=== PATIENT | male | born 1955 | race Caucasian/White ===

== ENCOUNTER 2021-11-26 08:34 | Observation (INO) ==
[~2021-11-26 08:34] MED LIST: LIDOCAINE 1% LOCAL 20 ML VIAL ONE
[2021-11-26] MEDS ORDERED: MIDAZOLAM HCL 1 MG/ML 2ML VIAL ONE (09:22)
[2021-11-26] MEDS ORDERED: niCARdipine HCL INJ 2.5 MG/ML 10 ML AMP ONE (09:22)
[2021-11-26] MEDS ORDERED: HEPARIN (PORCINE) 1000 UNIT/ML 10 ML (CATH LAB USE ONLY) ONE ×2 (09:22→11:45)
[2021-11-26] MEDS ORDERED: fentaNYL citrate 100 MCG/2 ML VIAL ONE (09:22)
[2021-11-26] MEDS ORDERED: NITROGLYCERIN/D5W 100MCG/ML 20ML SYR ONE (09:23)
--- NOTE | 2021-11-26 09:54 | Pre Anesthesia Assessment ---
Date of Service November 26, 2021 Pre Sedation Assessment Vital Signs Temp Pulse Pulse Pulse Resp BP Pulse Ox 11/27/21 08:01 36.6 C 69 20 116/75 94 11/27/21 07:00 59 L 11/27/21 03:20 36.5 C 67 14 112/68 97 11/26/21 23:00 65 11/26/21 22:57 36.4 C L 61 18 131/67 95 11/26/21 18:59 37.3 C 64 18 131/67 95 11/26/21 15:10 36.4 C L 69 17 135/77 96 11/26/21 13:41 36.6 C 70 18 153/89 H 96 11/26/21 12:52 36.4 C L 60 18 149/77 H 98 11/26/21 12:20 36.3 C L 61 20 174/79 H 98 11/26/21 12:05 16 157/90 H 97 11/26/21 11:50 67 16 153/84 H 95 O2 Del Method 11/27/21 08:01 Room Air 11/27/21 07:00 11/27/21 03:20 Room Air 11/26/21 23:00 11/26/21 22:57 Room Air 11/26/21 18:59 Room Air 11/26/21 15:10 Room Air 11/26/21 13:41 Room Air 11/26/21 12:52 11/26/21 12:20 Room Air 11/26/21 12:05 Room Air 11/26/21 11:50 Room Air Cardiovascular RRR, no murmur, no edema + femoral pulses present and + radial pulses present; no JVD and no carotid bruit no edema Respiratory normal respiratory effort, lungs clear to auscultation Pre-Sedation Airway Assessment Smoking Status: Never smoker Hx Sleep Apnea: No Short, Thick Neck: No Thyromental Distance: > or= 3.5 Finger Breadths Oral Cavity: + WNL Mallampati Class: II ASA: ASA3 NPO Status Date of Last Intake of Fluids: 11/26/21 Time of Last Intake of Fluids: 06:00 Date of Last Intake of Solid Food: 11/25/21 Time of Last Intake of Solid Foods: 20:30 Procedure Planning Contraindications for Sedation: none Current Medications Reviewed: Yes Notes The planned sedation has been discussed with the patient. Informed Consent was obtained. I have identified the patient, determined the appropriateness of sedation and have assessed the patient immediately prior to the procedure. All medicine(s) and interventions are by my order.
--- NOTE | 2021-11-26 09:54 | History & Physical Bridge Note ---
Date of Service November 26, 2021 History & Physical Bridge Note I have examined the patient, reviewed the History & Physical and in the interval since the performance of the History & Physical I have noted the following changes of clinical significance: no changes noted
--- NOTE | 2021-11-26 11:12 | Post Anesthesia Assessment ---
Date of Service November 26, 2021 Post Sedation Assessment Vital Signs Temp Pulse Pulse Pulse Resp BP Pulse Ox 11/27/21 08:01 36.6 C 69 20 116/75 94 11/27/21 07:00 59 L 11/27/21 03:20 36.5 C 67 14 112/68 97 11/26/21 23:00 65 11/26/21 22:57 36.4 C L 61 18 131/67 95 11/26/21 18:59 37.3 C 64 18 131/67 95 11/26/21 15:10 36.4 C L 69 17 135/77 96 11/26/21 13:41 36.6 C 70 18 153/89 H 96 11/26/21 12:52 36.4 C L 60 18 149/77 H 98 11/26/21 12:20 36.3 C L 61 20 174/79 H 98 11/26/21 12:05 16 157/90 H 97 11/26/21 11:50 67 16 153/84 H 95 O2 Del Method 11/27/21 08:01 Room Air 11/27/21 07:00 11/27/21 03:20 Room Air 11/26/21 23:00 11/26/21 22:57 Room Air 11/26/21 18:59 Room Air 11/26/21 15:10 Room Air 11/26/21 13:41 Room Air 11/26/21 12:52 11/26/21 12:20 Room Air 11/26/21 12:05 Room Air 11/26/21 11:50 Room Air Recovery Score Activity: Moves 4 extremities Respiration: Deep Breath/Cough Circulation: +/-20% PreAnes Value Consciousness: Arouseable (by name) Oxygen Saturation: > 92% On Room Air Discharge Sedation Level of Care: Phase I Post Sedation Plan On clinical assessment, the patient appears to have tolerated the sedation without complications. Patient is recovering as anticipated. Patient will continue to be monitored by nursing and may be discharged when sedation discharge criteria are met per below protocol. Upon Completions of procedure up to 15 minutes continue every 5 minute vital signs and the P.A.R. score; then discharge to a Phase I or Fast Track to Phase II per the following guidelines: * Discharge Patient to appropriate Phase II area if PAR is 8 or greater or return to pre- procedure baseline. The post - procedure orders will be as directed. * If PAR score is less than 8 or not return to pre-procedure baseline then patient will follow Phase I monitoring till PAR is reached for Phase II. The Phase I may be done in procedure room or may call to secure a Phase I area. * If naloxone or flumazenil are used for reversal, hold in Phase I for continued monitoring from when last reversal dose was given for a minimum of 60 minutes or longer pending the nurse and/or physician discretion of patient condition before discharge to Phase II. Please call the Sedation Physician to re-evaluate and complete post-note for discharge to Phase II area. Do NOT discharge from procedure sedation or Phase 1 until post- sedation evaluation note is complete by procedure /sedation MD Sedation Discharge Instructions to be given to the patient at discharge to home.
--- NOTE | 2021-11-26 11:15 | Cardiac Catheterization ---
Cardiac Cath Procedure Full Procedure Date November 26, 2021 Pre-Procedure Diagnosis Pre-Procedure Diagnosis: Angina and Positive Stress Test AUC Score AUC Score: 8 Post-Procedure Diagnosis Post-Procedure Diagnosis: Severe CAD and Elevated Intracardiac Pressures Procedure(s) Performed Procedure(s) Performed: Coronary Angiography and Left Heart Cath Groover Runner Suman Locke DO Rib Stiffener And Heel Dipper(s) Santoshr ATOMIC SPECTROSCOPIST Estimated Blood Loss Estimated Blood Loss: 5cc Medication(s) Medication(s): Fentanyl, Heparin, Lidocaine 1%, Nicardipine, Nitroglycerin and Versed Summary of Findings Severe tandem mid LAD stenosis. Severe diagonal branch vessel disease 70% mid RCA Hemodynamics Rest Ao:: 113/59/75 Final Ao: 123/64/89 LV: 121/0/13 Recommendations Recommendations: PCI without planned CABG Specimens Specimens: None Radiation Exposure (mGy) 319 Contrast (mls) 45 Drains Drains: N/A Anesthesia Moderate Sedation. Start 1048. End 1101. Sedation monitor: Maulik ARREAGA Procedural Complication(s) None Disposition Patient remained in Reimbursement Consultant for PCI of the LAD. I attest to the content of the Intraoperative Record and any orders documented therein. Any exceptions are noted below. ACC Data: Reimbursement Consultant Cardiac Status Clinical evaluation leading to the procedure 66-year-old pain-patient with exertional chest discomfort. Exercise stress echo borderline positive for inducible ischemia. CAD Presenation: Positive Stress Test and Stable angina Anginal Classification: CCS II Coronary Anatomy Dominant: Right Left Main (% Stenosis): Normal LAD (% Stenosis): Proximal (30%) and Mid (Tandem 80% followed by 90%) D1 (% Stenosis): Ostial (70%) and Mid (90%) Circumflex (% Stenosis): Proximal (20%) OM1 (% Stenosis): Mid (20%) RCA (% Stenosis): Mid (focal 70%) R PDA (% Stenosis): Normal R PL1 (% Stenosis): Normal R PL2 (% Stenosis): Normal Diagnostic Physicians Name: Suman Locke DO Closure Device Percutaneous Entry Location: Radial Closure Device: Radial Band Recommendations: PCI without planned CABG Intraprocedure Events Significant Disection: No Perforation: No
[2021-11-26] MEDS ORDERED: hydrALAZINE HCL 20 MG/ML VIAL ONE (11:42)
[2021-11-26] MEDS ORDERED: ASPIRIN 81 MG CHEW ONE (11:49)
[2021-11-26] MEDS ORDERED: CLOPIDOGREL BISULFATE 300 MG TAB ONE (11:55)
--- NOTE | 2021-11-26 12:29 | Cardiac Catheterization ---
[facility] Data: Tour Operator Cardiac Status Clinical evaluation leading to the procedure CAD Presenation: Positive Stress Test and Stable angina Anginal Classification: CCS III Heart Failure: No Cardiogenic Shock within 24 Hours: No Cardiac Arrest within 24 Hours: No Diagnostic Physicians Name: Magdaleno Kelly MD, PhD Closure Device Percutaneous Entry Location: Radial Closure Device: Radial Band Recommendations: PCI without planned CABG PCI Indication: + Stress Test Lesion Segment Name: Mid LAD Culprit Artery: Yes Stenosis Prior to Rx (%): 80 Chronic Total Occlusion: No Pre-Procedure TRICIA Flow: 2 Previously Treated Lesion: No Lesion Complexity: Non-High/Non-C Lesion Length (mm): 18 mm Thrombus Present: No Bifurcation Lesion: Yes Guidewire Across Lesion: Yes Intraprocedure Events Significant Disection: No Perforation: No Cardiac Cath Procedure Full Procedure Date November 26, 2021 Pre-Procedure Diagnosis Pre-Procedure Diagnosis: Angina, Positive Stress Test and CAD AUC Score AUC Score: 8 Post-Procedure Diagnosis Post-Procedure Diagnosis: Severe CAD and Successful PCI Procedure(s) Performed Procedure(s) Performed: Drug Eluting Stent Occupational Health Physician Magdaleno Kelly MD, PhD Teacher Aide(s) Josh LIU Estimated Blood Loss Estimated Blood Loss: 5cc Medication(s) Medication(s): Fentanyl, Heparin, Lidocaine 1%, Nicardipine, Nitroglycerin and Versed Summary of Findings Brief description: Patient was already shaved and prepped, sedated, with a 6 Indonesian radial artery sheath in place from diagnostic catheterization (see Dr. Locke note). ACT was checked and additional IV heparin was provided as needed to maintain therapeutic ACT. 6 Indonesian EBU 3.5 guide catheter used to cannulate the left main. BMW versa guidewire advanced into the distal LAD. Predilatation using a 2.5 x 12 mm trek up to 14 mike, multiple inflations. Stent implantation with a 2.5 x 23 mm Xience drug-eluting stent deployed at 12 mike. Postdilatation of the proximal and mid portion of the stent using a 2.75 x 12 mm noncompliant balloon. BMW universal rdirected into diagonal. attempted delivery of 2.0x8 PTCA balloon to post dilate struts but unsuccessful delivery. Balloon and guidewire removed. final angiographic evaluation. Guidecatheter removed. Radial sheath removed. TR band for hemostasis. Patient remained hemodynamically stable and asymptomatic. Patient received 600 mg of p.o. Plavix and 250 mg of p.o. aspirin. Returned to recovery. Case end. Findings: PCI of LAD: 0% residual stenosis post PCI TRICIA-3 flow post PCI No evidence of dissection or perforation post PCI Ostium of the diagonal is jailed. However, TRICIA-3 flow is present. Hemodynamics Rest Ao:: 123/64 mmHg, mean 89 mmHg Final Ao: 157/71 mmHg, mean 91 mmHg LV: Not performed Recommendations Recommendations: PCI without planned CABG Specimens Specimens: None Radiation Exposure (mGy) 1064 mGy, fluoroscopy time 11.7 minutes Contrast (mls) 90 mL Drains Drains: N/A Anesthesia Moderate Sedation. Start 1048. End 1101. Sedation monitor: Maulik ARREAGA Procedural Complication(s) None Disposition Patient remained in Tour Operator for PCI of the LAD. I attest to the content of the Intraoperative Record and any orders documented therein. Any exceptions are noted below. [facility] Card Cath Procedure Codes Stenting Procedure 1: Cardiovascular Stent Procedures: [id number] [facility] transcatheter placement of intracoronary stent(s), with ang (LAD) PG Care Time/CCT Total # of Minutes Spent Total Time Spent with Patient: Total time spent is greater than 50% in coordination of care (as documented) at patient's floor/unit and/or counseling patient:
[2021-11-27] MEDS ORDERED: ASPIRIN 81 MG ECTAB PO SCH (09:00)
[2021-11-27] MEDS ORDERED: LEVOTHYROXINE SODIUM 88 MCG TABLET PO SCH (09:00)
[2021-11-27] MEDS ORDERED: CLOPIDOGREL BISULFATE 75 MG TAB PO SCH (09:00)
[2021-11-27] MEDS ORDERED: ASPIRIN 325 MG ECTAB PO SCH (09:00)
[2021-11-27] MEDS ORDERED: ATORVASTATIN 40 MG TAB PO SCH (09:00)
--- NOTE | 2021-11-27 09:29 | Cardiology Progress Note ---
Date of Service November 27, 2021 Assessment & Plan (1) Status post insertion of drug-eluting stent into left anterior descending (LAD) artery: (2) Abnormal stress echocardiogram: (3) Dyslipidemia, goal LDL below 70: (4) Sinus bradycardia: Plan I had a long conversation with the patient and his regarding the results of cardiac catheterization and percutaneous intervention. Right coronary artery and diagonal branch vessel disease currently managed medically. If patient ex periences recurrent anginal symptoms. We will consider RCA intervention. Indications for current cardiovascular medications including aspirin, clopidogrel, high intensity statin therapy, and sublingual nitroglycerin reviewed. Patient agreeable to continue current medications. I would not recommend addition of beta-tangela therapy due to borderline resting hypotension and sinus bradycardia. Cardiology follow-up in 2-4 weeks. Admission and Anticipated Discharge Date Admission Date: November 26, 2021 Subjective 66-year-old patient status post cardiac catheterization demonstrating LAD, diagonal branch vessel, RCA stenosis. Status post LAD stenting with 2.5 x 23 mm Xience drug-eluting stent. RCA and diagonal branch vessel managed medically. Feeling well this morning. Denies chest pain or shortness of breath overnight. Telemetry reveals sinus bradycardia heart rate ranging 50-65 bpm. present at bedside. Offers no additional concerns/complaints. Review of Systems Review of Systems: All systems reviewed & are unremarkable except as noted in Subjective Physical Exam Constitutional: well developed and well nourished; no acute distress Respiratory: normal respiratory effort; no respiratory distress, no labored breathing and no retractions Auscultation: lungs clear to auscultation bilaterally; no crackles, no rales, no rhonchi and no wheezes Cardiovascular: Rate/Rhythm: regular rate and regular rhythm Heart Sounds: normal S1 and normal S2; no murmur Vessels: radial pulses present; no JVD and no carotid bruit Extremities: no edema Gastrointestinal (Abdomen): Inspection/Auscultation: abdomen normal to inspection and normal bowel sounds; abdomen not distended Percussion/Palpation: abdomen soft; abdomen nontender Neurologic: CN's II-XI intact bilaterally and moves all extremities; no focal motor deficits Motor/Sensory: no tremor Psychiatric: A+Ox3, euthymic affect Results & Data ([facility]) Vital Signs (Past 12 Hours) Vital Signs Temp Pulse Pulse Pulse Resp BP Pulse Ox 11/27/21 08:01 36.6 C 69 20 116/75 94 11/27/21 07:00 59 L 11/27/21 03:20 36.5 C 67 14 112/68 97 11/26/21 23:00 65 11/26/21 22:57 36.4 C L 61 18 131/67 95 O2 Del Method 11/27/21 08:01 Room Air 11/27/21 07:00 11/27/21 03:20 Room Air 11/26/21 23:00 11/26/21 22:57 Room Air
[2021-11-27] MEDS ORDERED: NITROGLYCERIN SL 0.4 MG/TAB TAB SL PRN (09:54)
--- NOTE | 2021-11-27 10:09 | Discharge Summary ---
Date of Service November 27, 2021 Admission HPI Per Admitting Provider 66-year-old male presents for cardiac catheterization due to abnormal stress echo and exertional angina. Principal Diagnosis Coronary artery disease status post drug-eluting stent implantation to the left anterior descending artery. Residual right coronary artery and diagonal branch vessel disease managed medically. Discharge Exam Respiratory normal respiratory effort, lungs clear to auscultation Cardiovascular Rate/Rhythm: regular rate, regular rhythm and + bradycardic Heart Sounds: normal S1 and normal S2; no murmur Vessels: radial pulses present; no JVD and no carotid bruit Extremities: no edema Gastrointestinal (Abdomen) Inspection/Auscultation: abdomen normal to inspection and normal bowel sounds; abdomen not distended Neurologic CN's II-XI intact bilaterally and moves all extremities; no focal motor deficits Psychiatric A+Ox3, euthymic affect Discharge Data Allergies Allergy/AdvReac Type Severity Reaction Status Date / Time No Known Allergies Allergy Unverified 11/26/21 08:55 Procedures Performed Operation Date: 11/26/21 09:30 Actual Procedures s Cineradiography w/Routine Exam - Suman Locke DO p Cath, Left with Cors and Vent(Right) - Suman Locke DO s Drug Eluting Stent SGl Vessel - Magdaleno Kelly MD, PhD Ordered Studies 11/26/21 06:52 CL IVUS Coronary Single Vessel Routine 11/26/21 06:55 CL Cath Imgs for PACS use only Routine Hospital Course (1) Status post insertion of drug-eluting stent into left anterior descending (LAD) artery: (2) Abnormal stress echocardiogram: (3) Dyslipidemia, goal LDL below 70: (4) Sinus bradycardia: Plan 66-year male status post drug-eluting stent plantation to left anterior descending artery. Residual RCA and diagonal branch vessel disease managed medically. Discussed importance of continuing dual antiplatelet therapy uninterrupted for minimum of 6 months post percutaneous intervention. Titrate atorvastatin to 80 mg daily. Proper use of sublingual nitroglycerin reviewed. Cardiology follow-up will be scheduled in 2-4 weeks. Total Time Total Time Spent Total Time Spent (In Minutes): 35 Discharge Plan Discharge Items Patient Disposition: Home - Self-Care Reason For Visit: Abnormal Stress Echo, Chest Heaviness Discharge Diagnosis: CAD s/p LAD drug-eluting stent implantation. Residual diagonal branch vessel and right coronary artery disease managed medically. Condition on Discharge: Good Activity: Per Instructions section Non-emergency contact: Conditioner Tumbler Operator Call non-emergency contact if: you have any medication questions, your symptoms worsen, your wound has increased redness and your wound pain has increased Follow-up/Referrals: Ngoc Hairston DO [Primary Care Provider] - Diet: Heart Healthy Addtl Attending Provider Instructions: ACTIVITY RECOMMENDATIONS: It is common to feel weak and fatigue for a few days. * Do not drive or operate any motorized equipment for the next three days. * Limit stair usage (2 or 3 trips a day only) for the next three days. * Do not lift anything heavier than 10 pounds for the next three days. * Do not engage in vigorous exercise or any sports for the next five days. * You may shower the day after your procedure, but do not immerse the area for three days. Cleanse the site gently with soap and water. SPECIAL CARE INSTRUCTIONS: * You may replace the pressure dressing or band-aid the morning after the procedure. * After your procedure, it is normal to have a small bruise or small lump at the site. Examine your site daily for any change in the bruise or lump, redness, swelling, drainage or numbness. Notify your doctor if any change. BLEEDING: * If there is a small amount of bleeding at the site, lie down and apply firm pressure with a clean cloth for ten minutes. When the bleeding stops, lie quietly keeping the procedure limb straight for six hours. Notify your doctor as soon as possible. * If the bleeding does not stop after ten minutes or if there is a large amount of bleeding or spurting, call 911 immediately. Continue to lie down and hold firm pressure until help arrives. SKIN IRRITATION: * You may experience some redness and/or swelling in the area where radiation was administered. If any skin irritation occurs, please contact your family physician. FOLLOW UP VISIT: Keep any scheduled doctor appointments. Pending Studies at Discharge: No Stand-Alone Forms: My [email or web address], Work/School Release, Smoking Cessation Medications and DC Order Prescriptions: New clopidogrel 75 mg Tablet 75 mg PO QAM Qty: 30 6RF atorvastatin 40 mg Tablet 80 mg PO DAILY Qty: 30 6RF nitroglycerin [Nitrostat] 0.4 mg Tablet, Sublingual 0.4 mg sublingual PRN PRN (Reason: chest pain) Qty: 1 4RF Continued levothyroxine 88 mcg Tablet 88 mcg PO DAILY aspirin 81 mg Capsule 81 mg PO DAILY Discontinued atorvastatin [Lipitor] 40 mg Tablet 40 mg PO DAILY Discharge Orders: Discharge Order (Routine); Ordered 11/27/21 Ordered By: Suman Locke Admission Data Admit Date/Time: 11/26/21 11:29 Attending Provider: Suman Locke Admit Provider: Suman Locke Primary Care Provider: Ngoc Hairston
[2021-11-28] MEDS ORDERED: ATORVASTATIN 40 MG TAB PO SCH (09:00)
== END 2021-11-27 10:54 | disposition home or self-care (01) ==
LOC: CC 08:34 → 2S 08:34

== ENCOUNTER 2022-02-24 18:22 | Inpatient (IN) ==
[2022-02-24 18:54] LABS: Basophils # (auto) 0.04 K/uL (0-0.2); Basophils % (auto) 0.6 %; Eosinophils # (auto) 0.09 K/uL (0-0.50); Eosinophils % (auto) 1.3 %; Hematocrit (blood only) 43.6 % (40.1-51.0); Hemoglobin 15.2 g/dl (14.0-18.0); Immature Granulocytes # (auto) 0.01 K/uL (0.00-0.02); Immature Granulocytes % (auto) 0.1 %; Lymphocytes # (auto) 2.48 K/uL (1.2-3.4); Lymphocytes % (auto) 34.7 %; Mean Corpuscular Hemoglobin 31.2 pg (25.0-34.0); Mean Corpuscular Hgb Conc 34.9 g/dL (32.0-36.0); Mean Corpuscular Volume 89.5 fL (80.0-100.0); Mean Platelet Volume 10.3 fL (9.4-12.4); Monocytes # (auto) 0.67 K/uL (0.24-0.82); Monocytes % (auto) 9.4 %; Neutrophils # (auto) 3.86 K/uL (1.4-6.5); Neutrophils % (auto) 53.9 %; Platelet Count 141 K/uL (130-400); RDW Coefficient of Variation 13.1 % (11.5-14.5); RDW Standard Deviation 42.7 fL (36.4-46.3); Red Blood Count 4.87 M/uL (4.63-6.08); White Blood Count 7.15 K/ul (4.8-10.8)
[2022-02-24 19:11] LABS: INR 1.1 (0.9-1.1); Partial Thromboplastin Ratio 0.9; Partial Thromboplastin Time 24.9 Seconds (21.0-31.0); Prothrombin Time 11.4 Seconds (9.0-12.0)
[2022-02-24 19:20] LABS: Albumin Globulin Ratio 1.5 (0.9-2); Bilirubin,Total 0.6 mg/dl (0.2-1.0); Calcium 9.1 mg/dl (8.5-10.1); Creatinine Clr Calc Pharmacy 75.3 ml/min; Est GFR (African American) 89.2 ml/min; Globulin 2.7 gm/dl (2.5-4.0); Potassium 4.4 mmol/L (3.5-5.1); Total Protein 6.7 gm/dl (6.0-8.3)
[2022-02-24 19:25] LABS: Troponin I High Sensitivity 6.6 pg/ml (0-20)
--- NOTE | 2022-02-24 20:41 | XRay Report ---
XR chest 1V portable HISTORY: Chest pain, nonspecific COMPARISON: Chest 07/19/2021. FINDINGS: The lungs are clear. Cardiac silhouette is normal in size. No pleural effusions. No pneumot horax. IMPRESSION: No acute process. ACT 112: Negative or not required by law. Electronically signed by: Navarro Juarez M.D. 02/24/2022 8:39 PM
--- NOTE | 2022-02-24 21:42 | Emergency Department Note ---
Past Med/Surg History Social History Smoking Status: Never smoker Hx Alcohol Use: No Hx Substance Use: No Preferred Language: Cambodian Current Living Situation: Spouse Feels Safe at Home: Yes Assistive Devices: None Allergies Allergies Allergy/AdvReac Type Severity Reaction Status Date / Time No Known Allergies Allergy Unverified 11/26/21 08:55 Home Meds Home Medications Medication Instructions Recorded Confirmed aspirin 81 mg capsule 81 mg PO DAILY 11/26/21 11/26/21 levothyroxine 88 mcg tablet 88 mcg PO DAILY 11/26/21 11/26/21 Previous Rx's Medication Instructions Recorded atorvastatin 40 mg tablet 80 mg PO DAILY #30 tabs 11/27/21 clopidogrel 75 mg tablet 75 mg PO QAM #30 tabs 11/27/21 nitroglycerin 0.4 mg sublingual 0.4 mg sublingual PRN PRN chest 11/27/21 tablet (Nitrostat) pain #1 btl Results & Data (ED) Vital Signs Vital Signs - 24 hr 02/24/22 18:30 Temperature 36.9 C Temperature Source Temporal Artery Scan Pulse Rate 61 Respiratory Rate 19 Respiratory Effort / Characteristics Non-Labored Spontaneous Respiratory Depth Normal Blood Pressure 144/84 H Blood Pressure Mean 104 Pulse Oximetry 98 Oxygen Delivery Method Room Air Sepsis Recent Fever Within 48 Hours No Sepsis New/Unexplained Change in Mental Status N/A Sepsis Action Taken by Nursing No Action Required Laboratory Data 02/24/22 18:45 02/24/22 18:45 Lab Results 02/24/22 02/24/22 02/24/22 Range/Units 18:45 18:45 18:45 WBC 7.15 (4.8-10.8) K/ul RBC 4.87 (4.63-6.08) M/uL Hgb 15.2 (14.0-18.0) g/dl Hct 43.6 (40.1-51.0) % MCV 89.5 (80.0-100.0) fL MCH 31.2 (25.0-34.0) pg MCHC 34.9 (32.0-36.0) g/dL RDW Std Deviation 42.7 (36.4-46.3) fL RDW Coeff of Natan 13.1 (11.5-14.5) % Plt Count 141 (130-400) K/uL MPV 10.3 (9.4-12.4) fL Immature Gran % (Auto) 0.1 % Neut % (Auto) 53.9 % Lymph % (Auto) 34.7 % Cooper % (Auto) 9.4 % Eos % (Auto) 1.3 % Baso % (Auto) 0.6 % Neut # (Auto) 3.86 (1.4-6.5) K/uL Lymph # (Auto) 2.48 (1.2-3.4) K/uL Cooper # (Auto) 0.67 (0.24-0.82) K/uL Eos # (Auto) 0.09 (0-0.50) K/uL Baso # (Auto) 0.04 (0-0.2) K/uL Immature Gran # (Auto) 0.01 (0.00-0.02) K/uL PT 11.4 (9.0-12.0) Seconds INR 1.1 (0.9-1.1) APTT 24.9 (21.0-31.0) Seconds PTT Ratio 0.9 Sodium 140 (136-145) mmol/L Potassium 4.4 (3.5-5.1) mmol/L Chloride 107 (98-107) mmol/L Carbon Dioxide 31 (21-32) mmol/L Anion Gap 2 L (3-11) BUN 28 H (6-23) mg/dl Creatinine 1.00 (0.6-1.4) mg/dl Est Cr Clr Drug Dosing 75.3 ml/min Est GFR ( Amer) 89.2 ml/min Est GFR (Non-Af Amer) 77.0 ml/min BUN/Creatinine Ratio 28.0 H (10-20) Glucose 86 (70-99(Fasting)) mg/dl Calcium 9.1 (8.5-10.1) mg/dl Magnesium 2.0 (1.7-2.4) mg/dl Total Bilirubin 0.6 (0.2-1.0) mg/dl AST 25 (13-39) U/L ALT 35 (7-52) U/L Alkaline Phosphatase 77 (34-104) U/L Troponin I High Sens 6.6 (0-20) pg/ml Total Protein 6.7 (6.0-8.3) gm/dl Albumin 4.0 (3.4-5.0) gm/dl Globulin 2.7 (2.5-4.0) gm/dl Albumin/Globulin Ratio 1.5 (0.9-2) Imaging Data Radiologist's Impression: Chest X-Ray 02/24/22 18:32 XR chest 1V portable HISTORY: Chest pain, nonspecific COMPARISON: Chest 07/19/2021. FINDINGS: The lungs are clear. Cardiac silhouette is normal in size. No pleural effusions. No pneumothorax. IMPRESSION: No acute process. ACT 112: Negative or not required by law. Electronically signed by: Navarro Juarez M.D. 02/24/2022 8:39 PM Discharge Plan Visit Data Chief Complaint: Cardiac Assessment Stated Complaint: REF BY DOC,HEART, CHEST PAIN,WEAK IN LEGS ED Provider: Neel Beckman ED Midlevel Provider: Shadia Moore Forms Stand Alone Forms: My [facility] Prescriptions Prescriptions: No Action levothyroxine 88 mcg Tablet 88 mcg PO DAILY aspirin 81 mg Capsule 81 mg PO DAILY clopidogrel 75 mg Tablet 75 mg PO QAM Qty: 30 6RF atorvastatin 40 mg Tablet 80 mg PO DAILY Qty: 30 6RF nitroglycerin [Nitrostat] 0.4 mg Tablet, Sublingual 0.4 mg sublingual PRN PRN (Reason: chest pain) Qty: 1 4RF Referrals Referrals: Ngoc Hairston DO [Primary Care Provider] -
[2022-02-24] MEDS ORDERED: ASPIRIN CHEW 324 MG PO STA (22:55)
--- NOTE | 2022-02-24 22:55 | Emergency Department Note ---
History of Present Illness General Chief complaint: Cardiac Assessment Stated complaint: REF BY DOC,HEART, CHEST PAIN,WEAK IN LEGS Time Seen by Provider: 02/24/22 21:28 History of Present Illness Maximum Pain Intensity: 2 This 66-year-old gentleman with prior heart disease and follows with Dr. Locke complains of exertional angina that is relieved with nitroglycerin for the past day. Patient states when he rests he feels much better. Patient denies fever, chills, abdominal pain, leg pain or swelling. He was stent placed last December. Home Medications Medication Instructions Recorded Confirmed Type aspirin 81 mg capsule 81 mg PO DAILY 11/26/21 02/24/22 History levothyroxine 88 mcg tablet 88 mcg PO DAILY 11/26/21 02/24/22 History clopidogrel 75 mg tablet 75 mg PO QAM #30 tabs 11/27/21 02/24/22 Rx nitroglycerin 0.4 mg sublingual 0.4 mg sublingual PRN PRN chest 11/27/21 02/24/22 Rx tablet (Nitrostat) pain #1 btl atorvastatin 80 mg tablet 80 mg PO QAM 02/24/22 02/24/22 History Allergies Allergy/AdvReac Type Severity Reaction Status Date / Time No Known Allergies Allergy Unverified 02/24/22 22:24 Past Med/Surg History Social History Smoking Status: Never smoker Hx Alcohol Use: No Hx Substance Use: No Preferred Language: Lao Current Living Situation: Spouse Feels Safe at Home: Yes Assistive Devices: None Review of Systems A total of 10 systems reviewed and were otherwise negative Physical Exam Vital Signs Vital Signs - 24 hr 02/24/22 18:30 Temperature 36.9 C Temperature Source Temporal Artery Scan Pulse Rate 61 Respiratory Rate 19 Respiratory Effort / Characteristics Non-Labored Spontaneous Respiratory Depth Normal Blood Pressure 144/84 H Blood Pressure Mean 104 Pulse Oximetry 98 Oxygen Delivery Method Room Air Sepsis Recent Fever Within 48 Hours No Sepsis New/Unexplained Change in Mental Status N/A Sepsis Action Taken by Nursing No Action Required VITALS: Vitals are noted on the nurse's note and reviewed by myself. Vital signs stable. GENERAL: Pleasant gentleman with his , in no acute distress, nondiaphoretic, well-developed well-nourished. SKIN: The skin was without rashes, erythema, edema, or bruising. There is no tenting of the skin. Capillary reflex less than 2 seconds. HEAD: Normocephalic atraumatic. EARS: External auditory canals clear EYES: Pupils equal round and reactive to light and accommodation. Conjunctivae without injection, sclerae without icterus. Extraocular movements intact. NOSE: Patent, turbinates without inflammation or discharge. MOUTH: Mucous membranes moist. Pharynx without erythema or exudate. Uvula midline. Airway patent. Tongue does not deviate. NECK: Supple without nuchal rigidity. No lymphadenopathy. No thyromegaly. Cervical spine is nontender. No JVD. HEART: Regular rate and rhythm LUNGS: Clear to auscultation bilaterally without wheezes, rales or rhonchi. No retractions or accessory muscle use. ABDOMEN: Positive bowel sounds x 4. Normal tympanic percussion. Soft, nontender, without masses or organomegaly. Victoria sign negative. No guarding or rebound tenderness. No CVA tenderness MUSCULOSKELETAL: No muscle atrophy, erythema, or edema noted. NEURO: Patient was alert and oriented to person place and time. Normal sensation to light and sharp touch. No focal neurological deficits. Medical Decision Making Medical Records Attestation: I reviewed the patient's medical records. Home Medications Current Medication List: was personally reviewed by me Laboratory Data Attestation: I reviewed the patient's lab results. 02/24/22 18:45 02/24/22 18:45 Lab Results 02/24/22 02/24/22 02/24/22 Range/Units 18:45 18:45 18:45 WBC 7.15 (4.8-10.8) K/ul RBC 4.87 (4.63-6.08) M/uL Hgb 15.2 (14.0-18.0) g/dl Hct 43.6 (40.1-51.0) % MCV 89.5 (80.0-100.0) fL MCH 31.2 (25.0-34.0) pg MCHC 34.9 (32.0-36.0) g/dL RDW Std Deviation 42.7 (36.4-46.3) fL RDW Coeff of Natan 13.1 (11.5-14.5) % Plt Count 141 (130-400) K/uL MPV 10.3 (9.4-12.4) fL Immature Gran % (Auto) 0.1 % Neut % (Auto) 53.9 % Lymph % (Auto) 34.7 % [place] % (Auto) 9.4 % Eos % (Auto) 1.3 % Baso % (Auto) 0.6 % Neut # (Auto) 3.86 (1.4-6.5) K/uL Lymph # (Auto) 2.48 (1.2-3.4) K/uL [place] # (Auto) 0.67 (0.24-0.82) K/uL Eos # (Auto) 0.09 (0-0.50) K/uL Baso # (Auto) 0.04 (0-0.2) K/uL Immature Gran # (Auto) 0.01 (0.00-0.02) K/uL PT 11.4 (9.0-12.0) Seconds INR 1.1 (0.9-1.1) APTT 24.9 (21.0-31.0) Seconds PTT Ratio 0.9 Sodium 140 (136-145) mmol/L Potassium 4.4 (3.5-5.1) mmol/L Chloride 107 (98-107) mmol/L Carbon Dioxide 31 (21-32) mmol/L Anion Gap 2 L (3-11) BUN 28 H (6-23) mg/dl Creatinine 1.00 (0.6-1.4) mg/dl Est Cr Clr Drug Dosing 75.3 ml/min Est GFR ( Amer) 89.2 ml/min Est GFR (Non-Af Amer) 77.0 ml/min BUN/Creatinine Ratio 28.0 H (10-20) Glucose 86 (70-99(Fasting)) mg/dl Calcium 9.1 (8.5-10.1) mg/dl Magnesium 2.0 (1.7-2.4) mg/dl Total Bilirubin 0.6 (0.2-1.0) mg/dl AST 25 (13-39) U/L ALT 35 (7-52) U/L Alkaline Phosphatase 77 (34-104) U/L Troponin I High Sens 6.6 (0-20) pg/ml Total Protein 6.7 (6.0-8.3) gm/dl Albumin 4.0 (3.4-5.0) gm/dl Globulin 2.7 (2.5-4.0) gm/dl Albumin/Globulin Ratio 1.5 (0.9-2) SARS-CoV-2, RNA, NAAT (NEGATIVE) 02/24/22 Range/Units 21:53 WBC (4.8-10.8) K/ul RBC (4.63-6.08) M/uL Hgb (14.0-18.0) g/dl Hct (40.1-51.0) % MCV (80.0-100.0) fL MCH (25.0-34.0) pg MCHC (32.0-36.0) g/dL RDW Std Deviation (36.4-46.3) fL RDW Coeff of Natan (11.5-14.5) % Plt Count (130-400) K/uL MPV (9.4-12.4) fL Immature Gran % (Auto) % Neut % (Auto) % Lymph % (Auto) % [place] % (Auto) % Eos % (Auto) % Baso % (Auto) % Neut # (Auto) (1.4-6.5) K/uL Lymph # (Auto) (1.2-3.4) K/uL [place] # (Auto) (0.24-0.82) K/uL Eos # (Auto) (0-0.50) K/uL Baso # (Auto) (0-0.2) K/uL Immature Gran # (Auto) (0.00-0.02) K/uL PT (9.0-12.0) Seconds INR (0.9-1.1) APTT (21.0-31.0) Seconds PTT Ratio Sodium (136-145) mmol/L Potassium (3.5-5.1) mmol/L Chloride (98-107) mmol/L Carbon Dioxide (21-32) mmol/L Anion Gap (3-11) BUN (6-23) mg/dl Creatinine (0.6-1.4) mg/dl Est Cr Clr Drug Dosing ml/min Est GFR ( Amer) ml/min Est GFR (Non-Af Amer) ml/min BUN/Creatinine Ratio (10-20) Glucose (70-99(Fasting)) mg/dl Calcium (8.5-10.1) mg/dl Magnesium (1.7-2.4) mg/dl Total Bilirubin (0.2-1.0) mg/dl AST (13-39) U/L ALT (7-52) U/L Alkaline Phosphatase (34-104) U/L Troponin I High Sens (0-20) pg/ml Total Protein (6.0-8.3) gm/dl Albumin (3.4-5.0) gm/dl Globulin (2.5-4.0) gm/dl Albumin/Globulin Ratio (0.9-2) SARS-CoV-2, RNA, NAAT NEGATIVE (NEGATIVE) Imaging Data Attestation: I personally reviewed and interpreted this imaging study as follows: Radiologist's Impression: Chest X-Ray 02/24/22 18:32 XR chest 1V portable HISTORY: Chest pain, nonspecific COMPARISON: Chest 07/19/2021. FINDINGS: The lungs are clear. Cardiac silhouette is normal in size. No pleural effusions. No pneumothorax. IMPRESSION: No acute process. ACT 112: Negative or not required by law. Electronically signed by: Navarro Juarez M.D. 02/24/2022 8:39 PM MDM Narrative Prior records/ancillary studies reviewed. Triage Nursing notes reviewed. Additional history obtained from family. The patient's history was concerning for chest pain. Differential diagnosis: Etiologies such as cardiac ischemia, aortic dissection, pulmonary embolism, pneumonia, pneumothorax, musculoskeletal, infections, pericarditis, myocarditis, esophageal rupture, gastrointestinal, as well as others were entertained. Physical examination: As above. ER treatment provided: An order was placed for continuous cardiac monitoring. The monitor shows a rate of 60-100 with a sinus rhythm per my interpretation. Aspirin On reassessment the patient felt better. Diagnostic interpretation by me: The electrocardiogram was negative for pathologic change. Order for chest pain EKG: Normal sinus, normal nose, no acute ST-T wave changes. Impression sinus bradycardia of 53 interpreted by myself I think arrhythmia is unlikely. EKG shows normal sinus rhythm with no interval abnormalities such as QT prolongation or WPW. There are no findings to suggest Brugada syndrome. Cardiac monitoring in the emergency department reveals no tachycardic or bradycardic dysrhythmia. Hypertrophic cardiomyopathy was considered but there are no clear historical elements pointing toward this. EKG is not suggestive. The QRS voltage is not extremely large and there are no sugg estive Q waves. The labs revealed negative troponin and repeat was ordered No worrisome leukocytosis, stable H&H Imaging studies: Chest x-ray with no acute consolidation, pneumothorax or free air per my interpretation HEART SCORE: Hx: high/mod/low suspicion: 1 ECG: ST depression/nonspecific changes/normal: 0 Age: Greater than 65/45-64/less than 45: 2 Risk factors: (Hypertension, hyperlipidemia, diabetes, coronary disease, tobacco use, cocaine use): 2 Troponin: Greater than 2 times normal limits/1-2 times normal limits/normal: 0 Total: 5 Consultation: A consultation was placed with the hospitalist. The case was discussed and diagnostics were reviewed. The patient was evaluated in the ER for further treatment. Exam and history seem consistent with exertional angina. Patient is considered moderate risk for heart disease. Labs and x-rays were ordered. First troponin was negative. Repeat was ordered. Case was discussed with the admission team and patient will be admitted to their service. Patient is agreeable to treatment plan of admission. By the evaluation outlined above emergent etiologies such as aortic dissection, pulmonary embolism, pneumonia, pneumothorax, infections, pericarditis, myocarditis, gastrointestinal, as well as others were deemed relatively unlikely. The pt informed about the findings as listed above. All questions were answered and pleased with the treatment. The chart was completed utilizing [employer] Speech voice recognition software. Grammatical errors, random word insertions, pronoun errors, and incomplete sentences are an occassional consequence of this system due to software limitations, ambient noise, and hardware issues. Any formal questions or concerns about the content, text, or information contained within the body of this dictation should be directly addressed to the physician video production assistant for clarification. Impression & Plan Chest pain Discharge Plan Visit Data Chief Complaint: Cardiac Assessment Stated Complaint: REF BY DOC,HEART, CHEST PAIN,WEAK IN LEGS ED Provider: Neel Beckman ED Midlevel Provider: Shadia Moore Discharge Problem: Chest pain Patient Disposition: Admitted As Inpatient Condition: Good Forms Stand Alone Forms: [facility] [employer] Prescriptions Prescriptions: No Action levothyroxine 88 mcg Tablet 88 mcg PO DAILY aspirin 81 mg Capsule 81 mg PO DAILY clopidogrel 75 mg Tablet 75 mg PO QAM Qty: 30 6RF nitroglycerin [Nitrostat] 0.4 mg Tablet, Sublingual 0.4 mg sublingual PRN PRN (Reason: chest pain) Qty: 1 4RF atorvastatin 80 mg tablet 80 mg PO QAM Referrals Referrals: Ngoc Hairston DO [Primary Care Provider] - : Chest pain Qualifiers: Chest pain type: unspecified Qualified Code(s): R07.9 - Chest pain, unspecified
--- NOTE | 2022-02-24 23:30 | Emergency Department Note ---
ED Visit Note I was consulted by the Advanced Practice Provider Ana oRsa Moore PA-C. I saw the patient personally and performed a substantive portion of the visit. This includes aspects of the HPI, MDM, diagnostic interpretations, and disposition/plan. Patient has a known history of A. fib and recent stent placement in December follows with Dr. Vivas. The patient was having exertional chest pain. Patient was admitted to the medicine service. . : Chest pain Qualifiers: Chest pain type: unspecified Qualified Code(s): R07.9 - Chest pain, unspecified
[2022-02-25] MEDS ORDERED: NITROGLYCERIN SL 0.4 MG/TAB TAB SL PRN (00:24)
[2022-02-25] MEDS ORDERED: POLYETHYLENE (MIRALAX) 17 GM PACK PO PRN (00:24)
[2022-02-25] MEDS ORDERED: ACETAMINOPHEN 325 MG TAB PO PRN (00:24)
[2022-02-25] MEDS: LEVOTHYROXINE SODIUM 88 MCG TABLET PO SCH (05:16)
--- NOTE | 2022-02-25 06:25 | History and Physical Report ---
DATE OF ADMISSION: 02/24/2022. CHIEF COMPLAINT: Chest pain. HISTORY OF PRESENT ILLNESS: A 66-year-old male with past medical history significant for hypothyroidism, hyperlipidemia, osteoarthritis, history of abnormal stress test, and status post cardiac catheterization and drug-eluting stent to the left anterior descending artery in November of 2021 and at that time he also was found to have 70% residual mid RCA disease and severe branch vessel diagonal stenosis, medically managed. The patient says he was doing okay until the last couple of days when he is getting chest pains on exertion. Walking 500 to 600 feet, he is feeling chest pain. He took two nitroglycerin yesterday and one nitroglycerin today which relieved the pain. When he rests, the pain resolves. Currently, resting comfortably in the bed in the ER, and has no pain. He is hemodynamically stable. Denies any other complaints. Denies any headache. No blurred visions, no earache, no runny nose, no sore throat, no cough. Appetite is okay. No difficulty swallowing. No shortness of breath. No nausea, no abdominal pain. Normal bowel and bladder movements. No swelling in the legs. ALLERGIES: No known drug allergies. PAST MEDICAL HISTORY: As mentioned above. PAST SURGICAL HISTORY: Cardiac catheterization with stent placement, right knee arthroscopy. MEDICATIONS: The patient is on aspirin 81 mg p.o. daily, atorvastatin 80 mg p.o. a.m., Plavix 75 mg p.o. a.m., levothyroxine 88 mcg p.o. daily, Nitrostat 0.4 mg sublingual p.r.n. FAMILY HISTORY: Significant for father had skin cancer; brother has diabetes; maternal grandmother has diabetes; paternal grandmother has diabetes; sister has diabetes; mother has Alzheimer disease. SOCIAL HISTORY: No smoking, no alcohol, no drug use. REVIEW OF SYSTEMS: As per HPI. Rest of the review of systems is negative. PHYSICAL EXAMINATION: GENERAL: The patient is of moderate build, not in acute distress. VITAL SIGNS: Temperature 36.9, pulse 61, respiratory rate 19, blood pressure 144/84, oxygen 98% on room air. HEENT: Pupils equal, round and reactive to light. Oral mucosa moist. NECK: No JVD. No neck masses. CARDIOVASCULAR: S1 and S2 heard. Regular rate and rhythm. No murmur, no gallop. RESPIRATORY SYSTEM: Normal AP diameter. No accessory muscle use. No wheezing, no crackles. ABDOMEN: Soft, bowel sounds present, nontender, no distention. CENTRAL NERVOUS SYSTEM: Cranial nerves II-XII grossly intact, nonfocal. EXTREMITIES: No edema, no erythema. LABORATORY DATA: WBC 7.15, hemoglobin 15.2, hematocrit 43.6, platelets 141. PT 11.4, INR 1.1, APTT 24.9. Sodium 140, potassium 4.4, chloride 107, bicarbonate 31, BUN 28, creatinine 1, serum glucose 86, calcium 9.1, magnesium 2, total bilirubin 0.6, AST 25, ALT 35, alkaline phosphatase 77. Troponin I high sensitivity 6.6. SARS-CoV-2 rapid test negative. IMAGING DATA: Chest x-ray, no acute process. EKG: Sinus bradycardia at a rate of 53, no significant change was found. ASSESSMENT AND PLAN: This is a 66-year-old male who presents with chest pain. 1. Chest pain, angina: The patient has history of coronary artery disease, status post LAD stent in November 2021. At that time, he was also found to have 70% mid RCA disease, medically managed. Currently, getting chest pain with exertion since last 2 days, relieved by nitroglycerin and relieved by rest. Currently hemodynamically stable. EKG is okay. Troponin is negative. Will follow serial cardiac enzymes. Will admit to tele floor. Will keep n.p.o. after midnight. Will get an echocardiogram. Consult cardiology in the a.m. 2. History of coronary artery disease, status post stent to LAD: On aspirin, Plavix, statin. Not on beta tangela due to bradycardia. 3. History of hyperlipidemia: On statin. Will follow lipid profile. 4. History of hypothyroidism: On levothyroxine. 5. Deep venous thrombosis prophylaxis: Sequential compression devices for now. DISPOSITION: Admit to tele. Expect to discharge home and follow with family doctor. Level 1 full code. Job ID: [id number] [facility]
[2022-02-25 06:28] LABS: Basophils # (auto) 0.02 K/uL (0-0.2); Basophils % (auto) 0.3 %; Eosinophils # (auto) 0.12 K/uL (0-0.50); Eosinophils % (auto) 2.1 %; Hematocrit (blood only) 42.3 % (40.1-51.0); Hemoglobin 14.8 g/dl (14.0-18.0); Immature Granulocytes # (auto) 0.01 K/uL (0.00-0.02); Immature Granulocytes % (auto) 0.2 %; Lymphocytes # (auto) 1.83 K/uL (1.2-3.4); Lymphocytes % (auto) 31.8 %; Mean Corpuscular Hemoglobin 30.6 pg (25.0-34.0); Mean Corpuscular Volume 87.6 fL (80.0-100.0); Mean Platelet Volume 10.3 fL (9.4-12.4); Monocytes # (auto) 0.55 K/uL (0.24-0.82); Monocytes % (auto) 9.6 %; Neutrophils # (auto) 3.22 K/uL (1.4-6.5); Platelet Count 137 K/uL (130-400); RDW Coefficient of Variation 12.7 % (11.5-14.5); RDW Standard Deviation 41.1 fL (36.4-46.3); Red Blood Count 4.83 M/uL (4.63-6.08); White Blood Count 5.75 K/ul (4.8-10.8)
[2022-02-25 06:40] LABS: Troponin I High Sensitivity 5.2 pg/ml (0-20)
[2022-02-25 06:49] LABS: Calcium 8.2 mg/dl (8.5-10.1); Magnesium 1.9 mg/dl (1.7-2.4); Potassium 3.8 mmol/L (3.5-5.1)
[2022-02-25 06:55] LABS: BUN Creatinine Ratio 26.8 (10-20); Chol HDL Ratio 2.3 (0-5); Creatinine Clr Calc Pharmacy 89.9 ml/min; Est GFR (African American) 105.3 ml/min; Est GFR (Non-African American) 90.9 ml/min
[2022-02-25] MEDS: ASPIRIN 81 MG ECTAB PO SCH (08:57)
[2022-02-25] MEDS: CLOPIDOGREL BISULFATE 75 MG TAB PO SCH (08:57)
[2022-02-25] MEDS: ATORVASTATIN 40 MG TAB PO SCH (08:57)
--- NOTE | 2022-02-25 10:13 | Cardiology Consultation ---
Date of Consultation February 25, 2022 Assessment & Plan (1) Chest pain: (2) Sinus bradycardia: (3) Dyslipidemia, goal LDL below 70: (4) Status post insertion of drug-eluting stent into left anterior descending (LAD) artery: Plan Given his significant symptoms consistent with unstable angina along with the known 70% mid RCA stenosis I believe most prudent course of action this point will be to proceed directly with cardiac catheterization and likely FFR the lesion. This was discussed with the patient and his in great detail and they both agree with the plan after discussing the risks, benefits and alternatives I have asked Dr. Zaldivar to perform the catheterization and he has kindly agreed. Further recommendations to follow. History of Present Illness Reason for Consultation: Chest pain Requesting Physician: Sarahi hospitalist group Attending Physician: Bert Leos MD History of Present Illness It was my pleasure to see Mr. Correa in cardiac consultation today February 25, 2022. He is a very pleasant 66-year-old gentleman has been followed Dr. Valencia of our cardiology practice for history of coronary artery disease. He underwent cardiac catheterization in November 2021 where a severely stenotic LAD was intervened upon and the first diagonal was jailed but maintained TRICAI-3 flow. He also had a 70% RCA lesion at that time there was not intervened upon. Prior to the catheterization he states his only symptoms were that of a syncopal event. He presented to [facility] on 02/24/2022 with complaints of chest pain. He states that he for started developing chest pain a day or 2 prior to arrival. 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 Then throughout the rest of the day anytime he would exert himself the pressure will become more intense until in the evening where he described the discomfort as 10 out of 10. At this time he took 2 sublingual nitroglycerin tablets with resolution of the discomfort. Upon arrival to the emergency department there is no acute ischemic changes and he was admitted to telemetry. Of note, he states he has not missed any doses of his dual antiplatelet therapy since stent placement. Allergies Allergy/AdvReac Type Severity Reaction Status Date / Time No Known Allergies Allergy Unverified 02/24/22 22:24 Home Medications Medication Instructions Recorded Confirmed Type aspirin 81 mg capsule 81 mg PO DAILY 11/26/21 02/24/22 History levothyroxine 88 mcg tablet 88 mcg PO DAILY 11/26/21 02/24/22 History clopidogrel 75 mg tablet 75 mg PO QAM #30 tabs 11/27/21 02/24/22 Rx nitroglycerin 0.4 mg sublingual 0.4 mg sublingual PRN PRN chest 11/27/21 02/24/22 Rx tablet (Nitrostat) pain #1 btl atorvastatin 80 mg tablet 80 mg PO QAM 02/24/22 02/24/22 History Patient History Social History Smoking Status: Never smoker Hx Alcohol Use: No Hx Substance Use: No Preferred Language: Paraguayan Communication Ability: Effective Stencil Inspector Required: No Beliefs That Will Affect Care: None Current Living Situation: Spouse Other Information That Helps Us Care for You: No Feels Safe at Home: Yes Safety Concerns: Feels Safe At This Time Assistive Devices: None Review of Systems Review of Systems: All systems reviewed & are unremarkable except as noted in HPI & below Physical Exam Physical Exam: General: Awake, alert and oriented x 3. No acute distress. HEENT: Normocephalic, atraumatic. Pupils equal, round and reactive to light and accommodation. Extraocular muscles are intact. Anicteric sclera. Moist mucous membranes. Neck: No JVD. No bruit. Cardiovascular: Regular. Positive S-4. Normal S-1 and S-2. No S-3. No murmurs or rubs. Pulmonary: Clear to auscultation B/L. No rales, rhonchi or wheezing Abdomen: Bowel sounds x 4, soft. No rebound, guarding or tenderness. No organomegaly. Extremities: No clubbing, cyanosis or edema. +2 pedal pulses bilaterally. Skin: Warm and dry. Results & Data ([facility]) Vital Signs (Past 12 Hours) Vital Signs Temp Pulse Pulse Resp BP Pulse Ox O2 Del Method 02/25/22 07:40 36.6 C 54 L 19 124/78 98 Room Air 02/25/22 03:13 36.6 C 56 L 18 133/79 97 Room Air 02/25/22 00:15 Room Air 02/25/22 00:15 Room Air 02/25/22 00:15 36.5 C 58 L 18 150/89 H 100 Room Air 02/24/22 23:20 54 L 14 96 02/24/22 23:10 57 L 16 95 02/24/22 23:00 53 L 16 95 02/24/22 22:56 53 L 15 95 Diagnostic Findings Cardiac cath 11/26/21 Findings: PCI of LAD: 0% residual stenosis post PCI TRICIA-3 flow post PCI No evidence of dissection or perforation post PCI Ostium of the diagonal is jailed. However, TRICIA-3 flow is present. (1) Chest pain Chest pain type: unspecified Qualified Code(s): R07.9 - Chest pain, unspecified
[2022-02-25] MEDS: ISOSORBIDE MONO EXTENDED REL 30 MG TABCR PO SCH (11:23)
[2022-02-25] MEDS ORDERED: fentaNYL citrate 100 MCG/2 ML VIAL ONE ×2 (11:39→13:43)
[2022-02-25] MEDS ORDERED: HEPARIN (PORCINE) 1000 UNIT/ML 10 ML (CATH LAB USE ONLY) ONE ×2 (11:39→13:38)
[2022-02-25] MEDS ORDERED: niCARdipine HCL INJ 2.5 MG/ML 10 ML AMP ONE (11:39)
[2022-02-25] MEDS ORDERED: MIDAZOLAM HCL 1 MG/ML 2ML VIAL ONE (11:39)
[2022-02-25] MEDS ORDERED: NITROGLYCERIN/D5W 100MCG/ML 20ML SYR ONE (11:40)
--- NOTE | 2022-02-25 11:42 | Pre Anesthesia Assessment ---
Date of Service February 25, 2022 Pre Sedation Assessment Vital Signs Temp Pulse Pulse Resp BP BP Pulse Ox 02/25/22 11:33 56 L 16 141/79 H 99 02/25/22 11:20 97.5 F L 53 L 19 164/83 H 98 02/25/22 07:40 97.9 F 54 L 19 124/78 98 02/25/22 03:13 97.9 F 56 L 18 133/79 97 02/25/22 00:15 02/25/22 00:15 02/25/22 00:15 97.7 F 58 L 18 150/89 H 100 02/24/22 23:20 54 L 14 96 02/24/22 23:10 57 L 16 95 02/24/22 23:00 53 L 16 95 02/24/22 22:56 53 L 15 95 02/24/22 18:30 98.4 F 61 19 144/84 H 98 O2 Del Method 02/25/22 11:33 Room Air 02/25/22 11:20 Room Air 02/25/22 07:40 Room Air 02/25/22 03:13 Room Air 02/25/22 00:15 Room Air 02/25/22 00:15 Room Air 02/25/22 00:15 Room Air 02/24/22 23:20 02/24/22 23:10 02/24/22 23:00 02/24/22 22:56 02/24/22 18:30 Room Air Cardiovascular RRR, no murmur, no edema Respiratory normal respiratory effort, lungs clear to auscultation Pre-Sedation Airway Assessment Smoking Status: Never smoker Hx Sleep Apnea: No Hx Difficult Intubation: No Short, Thick Neck: No Thyromental Distance: > or= 3.5 Finger Breadths Oral Cavity: + WNL Mallampati Class: III ASA: ASA2 NPO Status Date of Last Intake of Fluids: 02/25/22 Time of Last Intake of Fluids: 10:00 Date of Last Intake of Solid Food: 02/24/22 Time of Last Intake of Solid Foods: 23:00 Procedure Planning Contraindications for Sedation: none Current Medications Reviewed: Yes Notes The planned sedation has been discussed with the patient. Informed Consent was obtained. I have identified the patient, determined the appropriateness of sedation and have assessed the patient immediately prior to the procedure. All medicine(s) and interventions are by my order.
[2022-02-25] MEDS ORDERED: NOREPINEPHRINE BITARTRATE 1 MG/ML 4 ML VIAL IV ONE ×2 (12:50→12:52)
--- NOTE | 2022-02-25 13:01 | Hospitalist Progress Note ---
Date of Service February 25, 2022 Assessment & Plan (1) Chest pain: Plan: Patient is a 66 yr male who presents with chest pain. Chest pain Unstable angina H/O CAD S/P LAD stent in November 2021, 70% mid RCA stenosis -Troponin Negative -ECHO: Normal LV chamber size and wall thickness, normal LV systolic function, EF 60 to 65%. No segmental left ventricle wall motion abnormalities noted. Grade 2 diastolic dysfunction. Trace aortic and tricuspid regurgitation. -CXR:The lungs are clear. Cardiac silhouette is normal in size. No pleural effusions. No pneumothorax. -Continue aspirin, Lipitor, Plavix, isosorbide Nitroglycerin as needed Appreciate cardiology input Plan for cardiac catheterization today Chronic sinus bradycardia Not on any AV marshall blocking agents Monitor Hyperlipidemia: Lipid panel normal Continue Lipitor Hypothyroidism: On levothyroxine Check TSH DVT Px: SCDs for now Admission and Anticipated Discharge Date Admission Date: February 24, 2022 Subjective Patient is seen and examined at bedside Denies any chest pain today Also denies any dyspnea, dizziness, nausea, abdominal pain Family at bedside Plan for cardiac catheterization today Review of Systems Review of Systems: All systems reviewed & are unremarkable except as noted in Subjective Physical Exam Physical Exam: Physical Exam: Vitals signs as noted above General Appearance:Moderately built and nourished, no apparent distress Head: normocephalic, Atraumatic Eyes: normal inspection, EOMI Neck: supple, Trachea midline Respiratory/Chest: Normal breath sounds, CTA, No accessory muscle use Cardiovascular: S1, S2, No murmur Abdomen/GI:Soft, Non tender, Bowel sounds present Extremities/Musculoskeletal:normal inspection, no edema Neurologic/Psych:AAOX3, grossly no focal neurological deficits Skin: normal color, warm Results & Data Results & Data ([facility]) Vital Signs (Past 12 Hours) Vital Signs Temp Pulse Resp BP Pulse Ox O2 Del Method 02/25/22 11:33 56 L 16 141/79 H 99 Room Air 02/25/22 11:20 36.4 C L 53 L 19 164/83 H 98 Room Air 02/25/22 07:40 36.6 C 54 L 19 124/78 98 Room Air 02/25/22 03:13 36.6 C 56 L 18 133/79 97 Room Air Laboratory Results Short CBC 02/24/22 02/25/22 Range/Units 18:45 05:53 WBC 7.15 5.75 (4.8-10.8) K/ul Hgb 15.2 14.8 (14.0-18.0) g/dl Hct 43.6 42.3 (40.1-51.0) % Plt Count 141 137 (130-400) K/uL BMP 02/24/22 02/25/22 18:45 05:53 Sodium 140 140 Potassium 4.4 3.8 Chloride 107 108 H Carbon Dioxide 31 28 BUN 28 H 22 Creatinine 1.00 0.82 Glucose 86 100 H Calcium 9.1 8.2 L Liver Function 02/24/22 Range/Units 18:45 Total Bilirubin 0.6 (0.2-1.0) mg/dl AST 25 (13-39) U/L ALT 35 (7-52) U/L Alkaline Phosphatase 77 (34-104) U/L Albumin 4.0 (3.4-5.0) gm/dl (1) Chest pain Chest pain type: unspecified Qualified Code(s): R07.9 - Chest pain, unspecified
[2022-02-25] MEDS ORDERED: CLOPIDOGREL BISULFATE 300 MG TAB ONE (14:01)
--- NOTE | 2022-02-25 14:55 | Post Anesthesia Assessment ---
Date of Service February 25, 2022 Post Sedation Assessment Vital Signs Temp Pulse Pulse Resp BP BP Pulse Ox 02/25/22 14:12 68 16 104/59 L 95 02/25/22 11:33 56 L 16 141/79 H 99 02/25/22 11:20 97.5 F L 53 L 19 164/83 H 98 02/25/22 07:40 97.9 F 54 L 19 124/78 98 02/25/22 03:13 97.9 F 56 L 18 133/79 97 02/25/22 00:15 02/25/22 00:15 02/25/22 00:15 97.7 F 58 L 18 150/89 H 100 02/24/22 23:20 54 L 14 96 02/24/22 23:10 57 L 16 95 02/24/22 23:00 53 L 16 95 02/24/22 22:56 53 L 15 95 02/24/22 18:30 98.4 F 61 19 144/84 H 98 O2 Del Method 02/25/22 14:12 Room Air 02/25/22 11:33 Room Air 02/25/22 11:20 Room Air 02/25/22 07:40 Room Air 02/25/22 03:13 Room Air 02/25/22 00:15 Room Air 02/25/22 00:15 Room Air 02/25/22 00:15 Room Air 02/24/22 23:20 02/24/22 23:10 02/24/22 23:00 02/24/22 22:56 02/24/22 18:30 Room Air Recovery Score Activity: Moves 4 extremities Respiration: Deep Breath/Cough Circulation: +/-20% PreAnes Value Consciousness: Fully Awake Oxygen Saturation: O2 needed for >90% Discharge Sedation Level of Care: Fast Track Phase II Post Sedation Plan On clinical assessment, the patient appears to have tolerated the sedation without complications. Patient is recovering as anticipated. Patient will continue to be monitored by nursing and may be discharged when sedation discharge criteria are met per below protocol. Upon Completions of procedure up to 15 minutes continue every 5 minute vital signs and the P.A.R. score; then discharge to a Phase I or Fast Track to Phase II per the following guidelines: * Discharge Patient to appropriate Phase II area if PAR is 8 or greater or return to pre- procedure baseline. The post - procedure orders will be as directed. * If PAR score is less than 8 or not return to pre-procedure baseline then patient will follow Phase I monitoring till PAR is reached for Phase II. The Phase I may be done in procedure room or may call to secure a Phase I area. * If naloxone or flumazenil are used for reversal, hold in Phase I for continued monitoring from when last reversal dose was given for a minimum of 60 minutes or longer pending the nurse and/or physician discretion of patient condition before discharge to Phase II. Please call the Sedation Physician to re-evaluate and complete post-note for discharge to Phase II area. Do NOT discharge from procedure sedation or Phase 1 until post- sedation evaluation note is complete by procedure /sedation MD Sedation Discharge Instructions to be given to the patient at discharge to home.
--- NOTE | 2022-02-25 15:03 | Cardiac Catheterization ---
[facility] Data: Network Operations Specialist Cardiac Status Clinical evaluation leading to the procedure CAD Presenation: Unstable angina Diagnostic Physicians Name: Srinivas Zaldivar MD Closure Device Recommendations: Medical Therapy and/or Counseling Cardiac Cath Procedure Full Procedure Date February 25, 2022 Pre-Procedure Diagnosis Pre-Procedure Diagnosis: Acute Coronary Syndrome AUC Score AUC Score: 8 Post-Procedure Diagnosis Post-Procedure Diagnosis: Severe CAD and Successful PCI Procedure(s) Performed Procedure(s) Performed: Coronary Angiography, Left Heart Cath and Drug Eluting Stent Appeals Nurse Srinivas Zaldivar MD Operations Forester(s) [place] Estimated Blood Loss Estimated Blood Loss: 10 Medication(s) Medication(s): Clopidogrel, Fentanyl, Heparin, Lidocaine 1%, Nicardipine, Nitroglycerin and Versed Summary of Findings Indication: Suspected ACS. Prior stent to LAD 11/2021 Access: 6Fr right radial artery Catheters: [place], EBU 3.5 guide Findings: LM - Normal caliber, no significant disease. LAD - Medium caliber, 40-50% proximal disease. Mid LAD stent widely patent. Distal vessel without significant disease. Small D1 without disease. Medium jailed D2 with 98% ostial stenosis, 95% mid stenosis with TRICIA 1 distal D2 flow Circumflex - Medium caliber, 20% proximal stenosis. Gives off large OM2 without significant disease. RCA - Dominant, medium caliber, focal 60% mid segment stenosis. LVEDP - 5 -- PCI -- Antithrombotic therapy: Heparin, Clopidogrel Procedure: LM cannulated with EBU 3.5 guide Pre-procedure flow TRICIA 1 Prowater wire placed into distal LAD Dramatic Director 50 wire placed into D2 across stenosis Unable to pass 2.0, 1.5 balloons across proximal stent into diagonal. D2 re-wired with whisper wire. Still unable to pass 1.5 balloon across proximal stent despite use of a guideliner. Post dilated proximal aspect of initial stent with 3.5 NC, still unable to pass 1.5 balloon across stent struts. With the aid of a Corsair catheter D2 re-wired with a long whisper wire. Corsair catheter passed through stent struts and across ostial/mid stenosis into distal D2. Injection through catheter confirmed distal intraluminal position. Ostial to mid D2 dilated with 1.5 and 2.0 balloons Dilated lesion stented with 2.25 x 22 mm Arabi CLARA ending at ostium (T-for mation). Stent post-dilated with 2.5 noncompliant balloon IC vasodilators administered for spasm Post procedure TRICIA 3 flow, stent well expanded with minimal residual stenosis and no apparent cardiac complications. Arterial Closure: TR band Summary: 1. Multivessel coronary artery disease - 98% ostial, 95% mid jailed D2 with TRICIA 1 flow - 40-50% proximal LAD, widely patent mid LAD stent - 60% mid RCA 2. Normal intracardiac filling pressure 3. Successful PCI of jailed D2 from ostium to mid segment with single drug- eluting (2.25 x 22mm Kleber; post-dilated 2.5 NC). Recommendations: To PCU for continued monitoring Continue DAPT with ASA/Clopidogrel for at least 1 year, consider extended therapy with bifurcating stents Continue statin, and ASCVD risk factor modification Consult cardiac Rehab Hemodynamics Rest Ao:: 101/58/76 Final Ao: 117/57/81 LV: 93/5 Recommendations Recommendations: Medical Therapy and/or Counseling Specimens Specimens: None Radiation Exposure (mGy) 1665 Contrast (mls) 130 Anesthesia moderate [id number] Procedural Complication(s) None Disposition PCU I attest to the content of the Intraoperative Record and any orders documented therein. Any exceptions are noted below. [facility] Card Cath Procedure Codes Cardiac Catheterization Procedure 1: Cardiovascular Cath Procedures: 87813 Coronaries and LHC (+/-LV) Moderate Sedation Procedure 1: Sedation/Anesthesia: 40639 Mod Sedation by the same physician;Init15 Min Child Age 5 & Up Procedure 2: Sedation/Anesthesia: 21704 Mod Sedation by the same physician; Ea [id number] Minutes Stenting Procedure 1: Cardiovascular Stent Procedures: 97323 Perc transcatheter placement of intracoronary stent(s), with ang PG Care Time/CCT Total # of Minutes Spent Total Time Spent with Patient: Total time spent is greater than 50% in coordination of care (as documented) at patient's floor/unit and/or counseling patient:
[2022-02-25] MEDS ORDERED: SODIUM CHLORIDE 0.9% 1000ML 1,000 ML IV SCH (15:15)
[2022-02-26] MEDS: LEVOTHYROXINE SODIUM 88 MCG TABLET PO SCH (06:05)
[2022-02-26 06:21] LABS: Magnesium 1.9 mg/dl (1.7-2.4); Potassium 4.3 mmol/L (3.5-5.1)
[2022-02-26 06:27] LABS: BUN Creatinine Ratio 24.2 (10-20); Creatinine Clr Calc Pharmacy 74.3 ml/min; Est GFR (African American) 90.3 ml/min; Est GFR (Non-African American) 77.9 ml/min
[2022-02-26 06:29] LABS: Platelet Estimate Decreased (Normal)
[2022-02-26 06:30] LABS: Hematocrit (blood only) 37.7 % (40.1-51.0); Hemoglobin 13.2 g/dl (14.0-18.0); Mean Corpuscular Hemoglobin 30.6 pg (25.0-34.0); Mean Corpuscular Volume 87.5 fL (80.0-100.0); Mean Platelet Volume 10.5 fL (9.4-12.4); Platelet Count 127 K/uL (130-400); RDW Coefficient of Variation 12.8 % (11.5-14.5); RDW Standard Deviation 41.5 fL (36.4-46.3); Red Blood Count 4.31 M/uL (4.63-6.08); White Blood Count 7.92 K/ul (4.8-10.8)
[2022-02-26 06:37] LABS: Thyroid Stimulating Hormone 5.855 uIu/ml (0.300-4.500)
[2022-02-26 07:15] LABS: T4 Free Thyroxine 0.72 ng/dl (0.61-1.60)
[2022-02-26] MEDS: ATORVASTATIN 40 MG TAB PO SCH (08:44)
[2022-02-26] MEDS: ASPIRIN 81 MG ECTAB PO SCH (08:44)
[2022-02-26] MEDS: CLOPIDOGREL BISULFATE 75 MG TAB PO SCH (08:44)
[2022-02-26] MEDS: ISOSORBIDE MONO EXTENDED REL 30 MG TABCR PO SCH (08:44)
--- NOTE | 2022-02-26 10:06 | Electrocardiogram Report ---
Test Reason : Blood Pressure : / mmHG Vent. Rate : 053 BPM Atrial Rate : 053 BPM P-R Int : 170 ms QRS Dur : 096 ms QT Int : 450 ms P-R-T Axes : 064 056 061 degrees QTc Int : 422 ms Poor data quality, interpretation may be adversely affected Sinus bradycardia Otherwise normal ECG When compared with ECG of 19-JUL-2021 11:25, No significant change was found Confirmed by Conrado Asher ([id number]) on 02/26/2022 10:06:15 AM Referred By: Suman Locke Confirmed By:Conrado Asher
--- NOTE | 2022-02-26 10:39 | Electrocardiogram Report ---
Test Reason : Blood Pressure : / mmHG Vent. Rate : 053 BPM Atrial Rate : 053 BPM P-R Int : 178 ms QRS Dur : 098 ms QT Int : 462 ms P-R-T Axes : 027 024 044 degrees QTc Int : 433 ms Sinus bradycardia Otherwise normal ECG When compared with ECG of 24-FEB-2022 18:37, No significant change was found Confirmed by Conrado Asher ([id number]) on 02/26/2022 10:38:40 AM Referred By: Suman Locke Confirmed By:Conrado Asher
--- NOTE | 2022-02-26 11:34 | Cardiology Progress Note ---
Date of Service February 26, 2022 Assessment & Plan (1) Chest pain: (2) Sinus bradycardia: (3) Dyslipidemia, goal LDL below 70: (4) Status post insertion of drug-eluting stent into left anterior descending (LAD) artery: Plan: Summary: 1. Multivessel coronary artery disease - 98% ostial, 95% mid jailed D2 with TRICIA 1 flow - 40-50% proximal LAD, widely patent mid LAD stent - 60% mid RCA 2. Normal intracardiac filling pressure 3. Successful PCI of jailed D2 from ostium to mid segment with single drug- eluting (2.25 x 22mm Kleber; post-dilated 2.5 NC). Plan Status post PCI to LAD jailed D2 artery Tolerated well RCA reassessed found only to be 60% Okay to discharge to home on previous medical regimen My office will call to arrange follow-up in 2 to 4 weeks. Restrictions reviewed with patient Admission and Anticipated Discharge Date Admission Date: February 24, 2022 Subjective Patient seen and examined. Chart reviewed. Telemetry reviewed. States he feels great and is anxious for discharge. Review of Systems Review of Systems: All systems reviewed & are unremarkable except as noted in HPI & below Physical Exam Physical Exam: General: Awake, alert and oriented x 3. No acute distress. HEENT: Normocephalic, atraumatic. Pupils equal, round and reactive to light and accommodation. Extraocular muscles are intact. Anicteric sclera. Moist mucous membranes. Neck: No JVD. No bruit. Cardiovascular: Regular. Positive S-4. Normal S-1 and S-2. No S-3. No murmurs or rubs. Pulmonary: Clear to auscultation B/L. No rales, rhonchi or wheezing Abdomen: Bowel sounds x 4, soft. No rebound, guarding or tenderness. No organomegaly. Extremities: No clubbing, cyanosis or edema. +2 pedal pulses bilaterally. Skin: Warm and dry. Results & Data ([facility]) Vital Signs (Past 12 Hours) Vital Signs Temp Pulse Pulse Resp BP Pulse Ox O2 Del Method 02/26/22 11:12 36.7 C 63 20 111/67 96 02/26/22 07:37 36.7 C 63 20 111/67 96 Room Air 02/26/22 03:08 36.6 C 64 18 96/53 L 94 Room Air 01/19/23 23:49 59 L (1) Chest pain Chest pain type: unspecified Qualified Code(s): R07.9 - Chest pain, unspecified
--- NOTE | 2022-02-26 16:11 | Electrocardiogram Report ---
Test Reason : Blood Pressure : / mmHG Vent. Rate : 059 BPM Atrial Rate : 059 BPM P-R Int : 174 ms QRS Dur : 094 ms QT Int : 438 ms P-R-T Axes : 061 062 047 degrees QTc Int : 433 ms Sinus bradycardia Otherwise normal ECG When compared with ECG of 25-FEB-2022 05:12, No significant change was found Confirmed by Conrado Asher ([id number]) on 02/26/2022 4:10:34 PM Referred By: Suman Locke Confirmed By:Conrado Asher
--- NOTE | 2022-02-26 18:22 | Discharge Summary ---
Date of Service February 26, 2022 Admission HPI Per Admitting Provider A 66-year-old male with past medical history significant for hypothyroidism, hyperlipidemia, osteoarthritis, history of abnormal stress test, and status post cardiac catheterization and drug-eluting stent to the left anterior descending artery in November of 2021 and at that time he also was found to have 70% residual mid RCA disease and severe branch vessel diagonal stenosis, medically managed. The patient says he was doing okay until the last couple of days when he is getting chest pains on exertion. Walking 500 to 600 feet, he is feeling chest pain. He took two nitroglycerin yesterday and one nitroglycerin today which relieved the pain. When he rests, the pain resolves. Currently, resting comfortably in the bed in the ER, and has no pain. He is hemodynamically stable. Denies any other complaints. Denies any headache. No blurred visions, no earache, no runny nose, no sore throat, no cough. Appetite is okay. No difficulty swallowing. No shortness of breath. No nausea, no abdominal pain. Normal bowel and bladder movements. No swelling in the leg Admission Exam Per Admitting Provider GENERAL: The patient is of moderate build, not in acute distress. VITAL SIGNS: Temperature 36.9, pulse 61, respiratory rate 19, blood pressure 144/84, oxygen 98% on room air. HEENT: Pupils equal, round and reactive to light. Oral mucosa moist. NECK: No JVD. No neck masses. CARDIOVASCULAR: S1 and S2 heard. Regular rate and rhythm. No murmur, no gallop. RESPIRATORY SYSTEM: Normal AP diameter. No accessory muscle use. No wheezing, no crackles. ABDOMEN: Soft, bowel sounds present, nontender, no distention. CENTRAL NERVOUS SYSTEM: Cranial nerves II-XII grossly intact, nonfocal. EXTREMITIES: No edema, no erythema Principal Diagnosis Unstable angina status post PCI to LAD jailed D2 artery Discharge Exam Constitutional: WD/WN, vitals as above, NAD, sitting up in bed, pleasant, conversing easily Respiratory: normal respiratory effort, lungs clear to auscultation, no wheeze, rales, rhonchi. Normal insp/exp effort, no accessory muscle use Cardiovascular: RRR, no murmur, no edema Vessels: no JVD or carotid bruit Chest: normal inspection of chest Abdomen: normal bowel sounds, soft, nontender, no hepatosplenomegaly Musculoskeletal: no cyanosis or clubbing, extremities motor strength 5/5 Skin: no rashes, warm and dry normal turgor Neurologic: PERRL, EOMI, accommodation nl, no face palsy, no dysarthria CN's II- XI intact bilaterally and moves all extremities Psychiatric: A+Ox3, euthymic affect Lymphatic: no cervical or axillary lymphadenopathy : deferred Discharge Data Allergies Allergy/AdvReac Type Severity Reaction Status Date / Time No Known Allergies Allergy Unverified 02/24/22 22:24 Consultations 02/25/22 08:00 Consult Cardiology Routine Procedures Performed Operation Date: 02/25/22 12:00 Actual Procedures p Cineradiography w/Routine Exam - Jules Zaldivar MD p Cath, Left with Cors and Vent - Jules Zaldivar MD s Drug Eluting Stent SGl Vessel - Jules Zaldivar MD Ordered Studies 02/25/22 10:48 CL Cath Imgs for PACS use only Routine Hospital Course (1) Chest pain: (2) Status post insertion of drug-eluting stent into left anterior descending (LAD) artery: Plan Patient is a 66-year-old male with past medical history of CAD with cardiac stent in November 2021 who presented to the ED with chest pain. The chest pain and been going on for 2 days prior to the arrival. The chest pain improved with sublingual nitroglycerin tablet. EKG was done which showed normal sinus rhythm; no ST or T wave changes. Patient underwent cardiac cath on February 25. He was found to have multivessel coronary artery disease. He had successful PCI of jailed D2 from ostium to mid segment with single drug-eluting. Patient did not have any recurrence of chest pain. Telemetry did not show any significant events. Patient was discharged home with instruction to follow-up with primary care doctor and cardiology. Dual antiplatelet agent were resumed. Patient was given prescription for Imdur. Total Time Total Time Spent Total Time Spent (In Minutes): 34 Total Time Includes: Examination of the Patient, Discharge Planning, Medication Reconciliation, Communication With Other Providers and Other Discharge Plan Discharge Items Patient Disposition: Home - Self-Care Reason For Visit: CHEST PAIN Discharge Diagnosis: Unstable angina Condition on Discharge: Good Activity: Resume your previous activity Non-emergency contact: Primary Care Provider Call non-emergency contact if: you have any medication questions and your symptoms worsen Follow-up/Referrals: Ngoc Hairston, [Primary Care Provider] - (Date & Time 03/04/2022 9:00 AM Provider Elena Clifford MD Department [facility] ) Diet: Regular Addtl Attending Provider Instructions: You were admitted to the hospital with angina. You underwent cardiac catheterization with Successful PCI of jailed D2 from ostium to mid segment with single drug-eluting (2.25 x 22mm [place]; post-dilated 2.5 NC). Please continue to take your medication as prescribed. You are prescribe isosorbide mononitrate 30 mg once a day. You will have primary care follow-up set up for you for next week. Please follow-up with the academic tutor. Pending Studies at Discharge: No Stand-Alone Forms: My [facility] [employer], Smoking Cessation Medications and DC Order Prescriptions: New isosorbide mononitrate 30 mg Tablet Extended Release 24 Hr 30 mg PO QAM Qty: 30 0RF Continued levothyroxine 88 mcg Tablet 88 mcg PO DAILY aspirin 81 mg Capsule 81 mg PO DAILY clopidogrel 75 mg Tablet 75 mg PO QAM Qty: 30 6RF nitroglycerin [Nitrostat] 0.4 mg Tablet, Sublingual 0.4 mg sublingual PRN PRN (Reason: chest pain) Qty: 1 4RF atorvastatin 80 mg tablet 80 mg PO QAM Discharge Orders: Discharge Order (Routine); Ordered 02/26/22 Ordered By: Claude Obregon Admission Data Admit Date/Time: 02/24/22 22:59 Attending Provider: Claude Obregon Admit Provider: Donal Amanda Primary Care Provider: Ngoc Hairston Other Providers: Memo Manzo ; Magdaleno Means ; Clay Felix ; Suman Locke ; King Stratton ; Jake Bedolla ; Autumn Alexander ; Bridgette Lane ; Sofie Gomez ; Surya Crooks Other Interventions: Discharge Summary Assessment (RN) Last Done: 02/26/22 11:12
== END 2022-02-26 11:37 | disposition home or self-care (01) | DRG 247 ==
LOC: ED 18:22 → 2S 22:59 → SUATTDRO 22:59 → 2S 02-25 00:15

== ENCOUNTER 2022-08-13 17:49 | Observation (INO) ==
[2022-08-13] MEDS ORDERED: ONDANSETRON INJ 2 MG/ML 2 ML VIAL IV STA (18:25)
[2022-08-13] MEDS ORDERED: SODIUM CHLORIDE 0.9% 1000ML 1,000 ML IV ONE (18:25)
[2022-08-13 18:53] LABS: Albumin Globulin Ratio 1.6 (0.9-2); Albumin Level 4.2 gm/dl (3.4-5.0); BUN Creatinine Ratio 23.3 (10-20); Calcium 8.9 mg/dl (8.6-10.3); Creatinine Clr Calc Pharmacy 73.2 ml/min; Est GFR (African American) 85.5 ml/min; Est GFR (Non-African American) 73.8 ml/min; Globulin 2.7 gm/dl (2.5-4.0); Potassium 3.9 mmol/L (3.5-5.1); Total Protein 6.9 gm/dl (6.0-8.3)
[2022-08-13 18:54] LABS: Troponin I High Sensitivity 5.4 pg/ml (0-20)
[2022-08-13 18:59] LABS: INR 1.1 (0.9-1.1); Partial Thromboplastin Time 27.8 Seconds (21.0-31.0)
--- NOTE | 2022-08-13 19:01 | Emergency Department Note ---
Impression & Plan Weakness, Thrombocytopenia, Unsteady gait, Leukopenia, Headache ED Provider Note Provider: Oscar Davila MD DATE OF SERVICE: 08/13/2022 CHIEF COMPLAINT: Head pain, chest pain, cough, dizziness and unbalanced HISTORY OF PRESENT ILLNESS: Patient is a 67-year-old gentleman history of significant CAD with stenting in the past year presenting today with 2 weeks of general worsening. Particular last several days has been having significantly increased fatigue as well as some head pain into the neck. Denies any syncope or trauma. Did drive today to [place] and back for work. States he been very unsteady in the last day or so prickly when trying to ambulate and has very difficult time try to get out of bed. 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 Denies loss of consciousness. Reports a bit of shortness of breath. Some cough but minimal. Fever within the last 2 weeks. Did take some Tylenol earlier today after his sister discussed with him and recommended she come here for evaluation. Denies new numbness or tingling in extremities. Denies dizziness at this time. States he really only unsteady when he tries to get up and walk. No significant alcohol use reported. No significant leg swelling reported. PAST MEDICAL HISTORY: As noted above MEDICATIONS: Reviewed home medication SOCIAL HISTORY: Non-smoker PHYSICAL EXAM: GENERAL: alert and oriented in no acute distress on stretcher Head: normocephalic and atraumatic EYES: No injection, discharge or icterus. PERRL, EOMI. NECK: Trachea midline. Supple. ENT: Mucous membranes pink and moist. Pharynx without erythema or exudate. LUNGS: Airway patent. No retractions. Breath sounds clear with good air entry bilaterally. HEART: Regular rate and rhythm. No chest wall tenderness ABDOMEN: Soft and non-tender, without guarding or rebound. SKIN: Acyanotic, warm, dry, without rashes EXTREMITIES: Without swelling, tenderness or deformity NEUROLOGICAL: No focal deficits. No aphasia. No facial droop or slurred speech. Normal strength and tone in the extremities. Sensation to gross touch normal. Ambulatory but very unsteady with attempts at ambulating EK beats per. Normal sinus rhythm. No PVC or PAC. No acute ST segment elevation or depression with a QTc of 427 CONTINUOUS CARDIAC MONITORING: was ordered and showed a heart rate of 70s bpm in normal sinus rhythm Patient's laboratory studies and imaging reviewed. Differential includes Infection, dehydration, metabolic abnormality, hypo/hyperglycemia, electrolyte disturbance, anemia, hypoxia, cardiac sources, neurologic, as well as other pathologies. IMPRESSION/MEDICAL DECISION MAKING: Patient with multiple complaints including significant head pressure and some neck discomfort as well as chest discomfort. Slight cough. Denies significant abdominal pain but endorses nausea. Did travel significantly today. Some fevers reported recently with significant unsteadiness. No focal numbness or weakness on exam but trying to ambulate him is very difficult. Question occult CVA. Question given the travel and the reports of some shortness of breath and chest discomfort PE. EKG is reassuring but troponin sent given his cardiac history. And COVID test which is negative as well as Lyme test was negative given some the infectious symptoms. Does have some cytopenia and leukopenia here today. Questions could represent anaplasmosis smear was reassuring. Does not appear septic. No evidence of hepatitis or pancreatitis. Normal renal function. Sent for CT of the head as well as CT angiograms of the head neck and chest without any significant findings of blood clot, aneurysm, dissection, or intracranial bleeding. Again patient blood work only significant for leukopenia and thrombocytopenia. Do question if there may be some occult infectious process such as anaplasmosis although smear is negative this time. Will empirically give a dose of doxycycline to cover for this given the locally increased prevalence of this at this time. Discussed with patient and his significant other at bedside. Recommended given the unclear etiology with his significant unsteadiness when ambulating recommend we observe him overnight and see if he has improvement with the antibiotic therapy and hydration. If is not having improvement need to pursue additional testing and evaluation for other possible etiologies but again at this time have a lower suspicion for acute CVA. After discussion he was agreeable for this and the hospitalist was contacted. Patient does not appear meningitic and I doubt acute intracranial bleed or meningitis at this time. DIAGNOSIS: Leukopenia, headache, weakness/unsteady, thrombocytopenia DISPOSITION: Hospitalist will evaluate Patient was agreeable with this plan. Past Med/Surg History Medical History Chest pain Social History Smoking Status: Never smoker Hx Alcohol Use: No Hx Substance Use: No Preferred Language: Yoruba Communication Ability: Effective Surgery Scheduler Required: No Beliefs That Will Affect Care: None Current Living Situation: Spouse Feels Safe at Home: Yes Assistive Devices: None Allergies Allergies Allergy/AdvReac Type Severity Reaction Status Date / Time No Known Allergies Allergy Unverified 08/13/22 21:30 Home Meds Home Medications Medication Instructions Recorded Confirmed aspirin 81 mg capsule 81 mg PO DAILY 11/26/21 08/13/22 levothyroxine 88 mcg tablet 88 mcg PO DAILY 11/26/21 08/13/22 atorvastatin 80 mg tablet 80 mg PO QAM 02/24/22 08/13/22 Previous Rx's Medication Instructions Recorded clopidogrel 75 mg tablet 75 mg PO QAM #30 tabs 11/27/21 nitroglycerin 0.4 mg sublingual 0.4 mg sublingual PRN PRN chest 11/27/21 tablet (Nitrostat) pain #1 btl isosorbide mononitrate 30 mg 30 mg PO QAM #30 tabs 02/26/22 tablet,extended release 24 hr Results & Data (ED) Vital Signs Vital Signs - 24 hr 08/13/22 18:00 08/13/22 18:19 08/13/22 18:45 Temperature 36.5 C Temperature Source Temporal Artery Scan Pulse Rate 76 71 Pulse Rhythm Regular Respiratory Rate 20 Respiratory Effort / Characteristics Non-Labored Spontaneous Respiratory Depth Normal Blood Pressure 126/71 Blood Pressure [Right Arm] Blood Pressure Mean 89 Blood Pressure Mean [Right Arm] Blood Pressure Position [Right Arm] Pulse Oximetry 97 Oxygen Delivery Method Room Air Room Air Sepsis Recent Fever Within 48 Hours No Sepsis New/Unexplained Change in Mental Status No Sepsis Action Taken by Nursing No Action Required 08/13/22 18:45 08/13/22 18:45 08/13/22 19:16 Temperature Temperature Source Pulse Rate 70 74 Pulse Rhythm Regular Respiratory Rate 21 20 Respiratory Effort / Characteristics Respiratory Depth Blood Pressure 134/77 Blood Pressure [Right Arm] 135/75 Blood Pressure Mean 96 Blood Pressure Mean [Right Arm] 95 Blood Pressure Position [Right Arm] Right Lateral Pulse Oximetry 98 98 96 Oxygen Delivery Method Room Air Room Air Sepsis Recent Fever Within 48 Hours Sepsis New/Unexplained Change in Mental Status Sepsis Action Taken by Nursing 08/13/22 21:00 08/13/22 22:22 Temperature Temperature Source Pulse Rate 70 Pulse Rhythm Respiratory Rate 16 Respiratory Effort / Characteristics Respiratory Depth Normal Blood Pressure Blood Pressure [Right Arm] 129/76 Blood Pressure Mean Blood Pressure Mean [Right Arm] 93 Blood Pressure Position [Right Arm] Pulse Oximetry 98 Oxygen Delivery Method Sepsis Recent Fever Within 48 Hours Sepsis New/Unexplained Change in Mental Status Sepsis Action Taken by Nursing Laboratory Data 08/13/22 18:11 08/13/22 18:11 Lab Results 08/13/22 08/13/22 08/13/22 Range/Units 18:11 18:11 18:11 WBC 3.31 L (4.8-10.8) K/ul RBC 4.63 L (4.70-6.10) M/uL Hgb 14.3 (14.0-18.0) g/dl Hct 40.9 L (42.0-52.0) % MCV 88.3 (80.0-100.0) fL MCH 30.9 (25.0-34.0) pg MCHC 35.0 (32.0-36.0) g/dL RDW Std Deviation 41.8 (36.4-46.3) fL RDW Coeff of Natan 12.9 (11.5-14.5) % Plt Count 83 L (130-400) K/uL MPV 10.7 (9.4-12.4) fL Immature Gran % (Auto) 0.6 % Neut % (Auto) 74.3 % Lymph % (Auto) 13.6 % [place] % (Auto) 11.2 % Eos % (Auto) 0.0 % Baso % (Auto) 0.3 % Neut # (Auto) 2.46 (1.40-6.50) K/uL Lymph # (Auto) 0.45 L (1.2-3.4) K/uL [place] # (Auto) 0.37 (0.11-0.59) K/uL Eos # (Auto) 0.00 (0-0.50) K/uL Baso # (Auto) 0.01 (0-0.2) K/uL Immature Gran # (Auto) 0.02 (0.01-0.20) K/uL Platelet Estimate Decreased L (Normal) Echinocytes 1+ PT 12.0 (9.0-12.0) Seconds INR 1.1 (0.9-1.1) APTT 27.8 (21.0-31.0) Seconds PTT Ratio 1.0 Sodium 133 L (136-145) mmol/L Potassium 3.9 (3.5-5.1) mmol/L Chloride 102 (98-107) mmol/L Carbon Dioxide 23 (21-32) mmol/L Anion Gap 8 (3-11) BUN 24 H (6-23) mg/dl Creatinine 1.03 (0.6-1.4) mg/dl Est Cr Clr Drug Dosing 73.2 ml/min Est GFR ( Amer) 85.5 ml/min Est GFR (Non-Af Amer) 73.8 ml/min BUN/Creatinine Ratio 23.3 H (10-20) Glucose 148 H (70-99(Fasting)) mg/dl Calcium 8.9 (8.6-10.3) mg/dl Total Bilirubin 1.0 (0.2-1.0) mg/dl AST 32 (13-39) U/L ALT 33 (7-52) U/L Alkaline Phosphatase 63 (34-104) U/L Troponin I High Sens 5.4 (0-20) pg/ml Total Protein 6.9 (6.0-8.3) gm/dl Albumin 4.2 (3.4-5.0) gm/dl Globulin 2.7 (2.5-4.0) gm/dl Albumin/Globulin Ratio 1.6 (0.9-2) Lipase 34 (11-82) U/L Procalcitonin (0-0.5) ng/ml Anaplasma Smear See Comment Lyme Disease IgG Ab (Negative) Lyme Disease IgM Ab (Negative) SARS-CoV-2, RNA, NAAT (NEGATIVE) 08/13/22 08/13/22 Range/Units 18:11 18:45 WBC (4.8-10.8) K/ul RBC (4.70-6.10) M/uL Hgb (14.0-18.0) g/dl Hct (42.0-52.0) % MCV (80.0-100.0) fL MCH (25.0-34.0) pg MCHC (32.0-36.0) g/dL RDW Std Deviation (36.4-46.3) fL RDW Coeff of Natan (11.5-14.5) % Plt Count (130-400) K/uL MPV (9.4-12.4) fL Immature Gran % (Auto) % Neut % (Auto) % Lymph % (Auto) % [place] % (Auto) % Eos % (Auto) % Baso % (Auto) % Neut # (Auto) (1.40-6.50) K/uL Lymph # (Auto) (1.2-3.4) K/uL [place] # (Auto) (0.11-0.59) K/uL Eos # (Auto) (0-0.50) K/uL Baso # (Auto) (0-0.2) K/uL Immature Gran # (Auto) (0.01-0.20) K/uL Platelet Estimate (Normal) Echinocytes PT (9.0-12.0) Seconds INR (0.9-1.1) APTT (21.0-31.0) Seconds PTT Ratio Sodium (136-145) mmol/L Potassium (3.5-5.1) mmol/L Chloride (98-107) mmol/L Carbon Dioxide (21-32) mmol/L Anion Gap (3-11) BUN (6-23) mg/dl Creatinine (0.6-1.4) mg/dl Est Cr Clr Drug Dosing ml/min Est GFR ( Amer) ml/min Est GFR (Non-Af Amer) ml/min BUN/Creatinine Ratio (10-20) Glucose (70-99(Fasting)) mg/dl Calcium (8.6-10.3) mg/dl Total Bilirubin (0.2-1.0) mg/dl AST (13-39) U/L ALT (7-52) U/L Alkaline Phosphatase (34-104) U/L Troponin I High Sens (0-20) pg/ml Total Protein (6.0-8.3) gm/dl Albumin (3.4-5.0) gm/dl Globulin (2.5-4.0) gm/dl Albumin/Globulin Ratio (0.9-2) Lipase (11-82) U/L Procalcitonin 0.18 (0-0.5) ng/ml Anaplasma Smear Lyme Disease IgG Ab Negative (Negative) Lyme Disease IgM Ab Negative (Negative) SARS-CoV-2, RNA, NAAT NEGATIVE (NEGATIVE) Administered Medications Sodium Chloride (Nss 1000ml) 1,000 mls @ 80 mls/hr IV .[id number] TARYN Stop: 08/15/22 00:47 Last Admin: 08/13/22 23:56 Dose: 80 mls/hr Documented By: KIMMIE Discontinued Medications Doxycycline Hyclate (Doxycycline Hyclate 100 Mg Cap) 100 mg PO NOW STA Stop: 08/13/22 20:37 Last Admin: 08/13/22 20:58 Dose: 100 mg Documented By: JUAN PABLO Sodium Chloride (Nss 1000ml) 1,000 mls @ 999 mls/hr IV .[id number] ONE Stop: 08/13/22 19:25 Last Infusion: 08/13/22 23:09 Dose: 0 mls/hr Documented By: Admin: 08/13/22 18:40 Dose: 999 mls/hr Documented By: JUAN PABLO Ioversol (Optiray 320 125ml) 119 ml IV ONCE ONE Stop: 08/13/22 19:22 Last Admin: 08/13/22 19:21 Dose: 119 ml Documented By: MARTÍN Ketorolac Tromethamine (Ketorolac Tromethamine 15 Mg/Ml Vial) 10 mg IV NOW ONE Stop: 08/13/22 21:14 Last Admin: 08/13/22 21:48 Dose: 10 mg Documented By: JUAN PABLO Ondansetron HCl (Ondansetron Inj 2 Mg/Ml 2 Ml Vial) 4 mg IV NOW STA Stop: 08/13/22 18:26 Last Admin: 08/13/22 18:40 Dose: 4 mg Documented By: JUAN PABLO Imaging Data Radiologist's Impression: Chest X-Ray 08/13/22 18:05 SINGLE VIEW CHEST CLINICAL HISTORY: Atypical chest pain. FINDINGS: An AP, portable, upright chest radiograph is compared to study dated 02/24/2022. The heart is mildly enlarged. The pulmonary vasculature is noncongested. The lungs and pleural spaces are clear noting mild bibasilar scarring/atelectasis. No pneumothorax is seen. The bony thorax is grossly intact. IMPRESSION: Mild cardiomegaly with no active disease in the chest. ACT 112: Negative or not required by law. Electronically signed by: Genaro Vásquez M.D. 08/13/2022 7:39 PM Chest CTA 08/13/22 18:25 Exam(s): CTA CHEST IV Amt: 119ML OPTIRAY 320 EXAM: CT Angiography Chest With Intravenous Contrast CLINICAL HISTORY: Evaluate for PE, dizzy, SOB/CP. TECHNIQUE: Axial computed tomographic angiography images of the chest with intravenous contrast. CTDI is 37.12 mGy and DLP is 1963.61 mGy-cm. Automated exposure control was utilized for the study. A dose lowering technique was utilized adhering to the principles of ALARA. MIP reconstructed images were created and reviewed. COMPARISON: No relevant prior studies available. FINDINGS: Pulmonary arteries: There is no evidence for pulmonary embolism. Aorta: No acute findings. No thoracic aortic aneurysm. Lungs: Dependent subsegmental changes are noted in the posterior aspect of both lower lobes. No focal airspace consolidation. Pleural space: Unremarkable. No significant effusion. No pneumothorax. Heart: The cardiac chambers are normal in size. Prominent coronary artery calcification in the mid to distal LAD and adjacent septal branch is of uncertain clinical significance. No pericardial effusion. Bones/joints: No acute fracture. No dislocation. Soft tissues: Unremarkable. Lymph nodes: Unremarkable. No enlarged lymph nodes. IMPRESSION: 1. There is no evidence for pulmonary embolism. 2. Dependent subsegmental atelectatic changes are noted in the posterior aspect of both lower lobes. No focal airspace consolidation. No pleural effusion or pneumothorax. 3. The cardiac chambers are normal in size. Prominent coronary artery calcification in the mid to distal LAD and adjacent septal branch is of uncertain clinical significance. Electronically signed by: Srikanth Barger MD 08/13/22 20:[address] 08/13/22 18:25 Exam(s): CT HEAD Without Contrast EXAM: CT Head Without Intravenous Contrast CLINICAL HISTORY: dizzy, pain. TECHNIQUE: Axial computed tomography images of the head/brain without intravenous contrast. CTDI is 37.12 mGy and DLP is 1963.61 mGy-cm. Automated exposure control was utilized for the study. A dose lowering technique was utilized adhering to the principles of ALARA. COMPARISON: No relevant prior studies available. FINDINGS: Brain: Unremarkable. No hemorrhage. No significant white matter disease. No edema. Ventricles: Unremarkable. No ventriculomegaly. Bones/joints: Unremarkable. No acute fracture. Soft tissues: Unremarkable. Sinuses: The paranasal sinuses are well-aerated without mucosal thickening or air-fluid levels. Mastoid air cells: Unremarkable as visualized. No mastoid effusion. IMPRESSION: No acute intracranial process identified. Electronically signed by: Srikanth Barger MD 08/13/22 20:16 PM Head CTA 08/13/22 18:25 Exam(s): CTA HEAD With Contrast IV Amt: 119ML OPTIRAY 320 EXAM: CT Angiography Head With Intravenous Contrast CLINICAL HISTORY: Reason for exam: dizzy, CP/KOHLI. TECHNIQUE: Axial computed tomographic angiography images of the head with intravenous contrast. CTDI is 37.12 mGy and DLP is 1963.61 mGy-cm. Automated exposure control was utilized for the study. A dose lowering technique was utilized adhering to the principles of ALARA. MIP reconstructed images were created and reviewed. CONTRAST: Patient received 119ML OPTIRAY 320 of IV contrast COMPARISON: No relevant prior studies available. FINDINGS: Right internal carotid artery: No acute findings. Intracranial segment is patent with no significant stenosis. No aneurysm. Right anterior cerebral artery: Unremarkable. No occlusion or significant stenosis. No aneurysm. Right middle cerebral artery: Unremarkable. No occlusion or significant stenosis. No aneurysm. Right posterior cerebral artery: Unremarkable. No occlusion or significant stenosis. No aneurysm. Right vertebral artery: Unremarkable as visualized. Left internal carotid artery: No acute findings. Intracranial segment is patent with no significant stenosis. No aneurysm. Left anterior cerebral artery: Unremarkable. No occlusion or significant stenosis. No aneurysm. Left middle cerebral artery: Unremarkable. No occlusion or significant stenosis. No aneurysm. Left posterior cerebral artery: Unremarkable. No occlusion or significant stenosis. No aneurysm. Left vertebral artery: Unremarkable as visualized. Basilar artery: Unremarkable. No occlusion or significant stenosis. No aneurysm. Dural sinuses/cerebral veins: The visualized dural sinuses are unremarkable. Brain: No abnormal enhancement following contrast administration. IMPRESSION: Negative intracranial CTA examination. Electronically signed by: Srikanth Barger MD 08/13/22 20:33 PM Neck CTA 08/13/22 18:25 Exam(s): CTA NECK With Contrast IV Amt: 119ML OPTIRAY 320 EXAM: CT Angiography Neck With Intravenous Contrast CLINICAL HISTORY: dizzy, CP/KOHLI. TECHNIQUE: Routine carotid CT angiography protocol was performed with intravenous contrast. NASCET criteria using the distal ICAs for comparison were used for evaluation of stenoses. CTDI is 37.12 mGy and DLP is 1963.61 mGy-cm. Automated exposure control was utilized for the study. A dose lowering technique was utilized adhering to the principles of ALARA. MIP reconstructed images were created and reviewed. CONTRAST: Patient received 119ML OPTIRAY 320 of IV contrast COMPARISON: None. FINDINGS: VASCULATURE: Right common carotid artery: Unremarkable. No occlusion or significant stenosis. No dissection. Right internal carotid artery: Unremarkable. Extracranial segment is patent with no occlusion or significant stenosis. No dissection. Right external carotid artery: Unremarkable. No occlusion. Right vertebral artery: Unremarkable. No occlusion or significant stenosis. No dissection. Left common carotid artery: Unremarkable. No occlusion or significant stenosis. No dissection. Left internal carotid artery: Unremarkable. Extracranial segment is patent with no occlusion or significant stenosis. No dissection. Left external carotid artery: Unremarkable. No occlusion. Left vertebral artery: The left vertebral artery originates from the aortic arch and is patent throughout its course. No occlusion or significant stenosis. No dissection. Brachiocephalic and subclavian arteries: There is a normal variant branching pattern of the proximal great vessels which are patent. Aorta: The aortic arch is patent. No dissection or aneurysm. NECK: Bones/joints: Unremarkable. Soft tissues: Unremarkable. Lung apices: Clear. CAROTID STENOSIS REFERENCE USING NASCET CRITERIA: % ICA stenosis = (1 - narrowest ICA diameter/diameter of distal cervical ICA) x 100. Mild - <50% stenosis. Moderate - 50-69% stenosis. Severe - 70-94% stenosis. Near occlusion - 95-99% stenosis. Occluded - 100% stenosis. IMPRESSION: Negative cervical CTA examination. Electronically signed by: Srikanth Barger MD 08/13/22 20:23 PM Discharge Plan Visit Data Chief Complaint: Chest Pain Stated Complaint: ISSUES WITH BALANCE,CHEST PRESSURE,HEAD PAIN ED Provider: Oscar Davila Discharge Problem: Weakness, Thrombocytopenia, Unsteady gait, Leukopenia, Headache Patient Disposition: Admitted As Inpatient Discharge Instructions Interventions: ED Discharge Assessment Last Done: 08/13/22 23:33
[2022-08-13 19:15] LABS: Procalcitonin 0.18 ng/ml (0-0.5)
[2022-08-13 19:21] LABS: Lyme Ab IgG w/WB Rflx Negative (Negative); Lyme Ab IgM w/WB Rflx Negative (Negative)
[2022-08-13] MEDS ORDERED: OPTIRAY 320 125ml IV ONE (19:21)
[2022-08-13 19:31] LABS: Basophils # (auto) 0.01 K/uL (0-0.2); Basophils % (auto) 0.3 %; Echinocytes 1+; Hematocrit (blood only) 40.9 % (42.0-52.0); Hemoglobin 14.3 g/dl (14.0-18.0); Immature Granulocytes # (auto) 0.02 K/uL (0.01-0.20); Immature Granulocytes % (auto) 0.6 %; Lymphocytes # (auto) 0.45 K/uL (1.2-3.4); Lymphocytes % (auto) 13.6 %; Mean Corpuscular Hemoglobin 30.9 pg (25.0-34.0); Mean Corpuscular Volume 88.3 fL (80.0-100.0); Mean Platelet Volume 10.7 fL (9.4-12.4); Monocytes # (auto) 0.37 K/uL (0.11-0.59); Monocytes % (auto) 11.2 %; Neutrophils # (auto) 2.46 K/uL (1.40-6.50); Neutrophils % (auto) 74.3 %; Platelet Count 83 K/uL (130-400); Platelet Estimate Decreased (Normal); RDW Coefficient of Variation 12.9 % (11.5-14.5); RDW Standard Deviation 41.8 fL (36.4-46.3); Red Blood Count 4.63 M/uL (4.70-6.10); White Blood Count 3.31 K/ul (4.8-10.8)
--- NOTE | 2022-08-13 19:41 | XRay Report ---
SINGLE VIEW CHEST CLINICAL HISTORY: Atypical chest pain. FINDINGS: An AP, portable, upright chest radiograph is compared to study dated 02/24/2022. The heart i s mildly enlarged. The pulmonary vasculature is noncongested. The lungs and pleural spaces are clear noting mild bibasilar scarring/atelectasis. No pneumothorax is seen. The bony thorax is grossly intac t. IMPRESSION: Mild cardiomegaly with no active disease in the chest. ACT 112: Negative or not required by law. Electronically signed by: Genaro Vásquez M.D. 08/13/2022 7:39 PM
--- NOTE | 2022-08-13 20:17 | CT Scan Report ---
Exam(s): CT HEAD Without Contrast EXAM: CT Head Without Intravenous Contrast CLINICAL HISTORY: dizzy, pain. TECHNIQUE: Axial computed tomography images of the head/brain without intravenous contrast. CTDI is 37.12 mGy and DLP is 1963.61 mGy-cm. Automated exposure control was utilized for the study. A dose lowering technique was utilized adhering to the principles of ALARA. COMPARISON: No relevant prior studies available. FINDINGS: Brain: Unremarkable. No hemorrhage. No significant white matter disease. No edema. Ventricles: Unremarkable. No ventriculomegaly. Bones/joints: Unremarkable. No acute fracture. Soft tissues: Unremarkable. Sinuses: The paranasal sinuses are well-aerated without mucosal thickening or air-fluid levels. Mastoid air cells: Unremarkable as visualized. No mastoid effusion. IMPRESSION: No acute intracranial process identified. Electronically signed by: Srikanth Barger MD 08/13/22 20:16 PM
--- NOTE | 2022-08-13 20:21 | CT Scan Report ---
Exam(s): CTA CHEST IV Amt: 119ML OPTIRAY 320 EXAM: CT Angiography Chest With Intravenous Contrast CLINICAL HISTORY: Evaluate for PE, dizzy, SOB/CP. TECHNIQUE: Axial computed tomographic angiography images of the chest with intravenous contrast. CTDI is 37.12 mGy and DLP is 1963.61 mGy-cm. Automated exposure control was utilized for the study. A dose lowering technique was utilized adhering to the principles of ALARA. MIP reconstructed images were created and reviewed. COMPARISON: No relevant prior studies available. FINDINGS: Pulmonary arteries: There is no evidence for pulmonary embolism. Aorta: No acute findings. No thoracic aortic aneurysm. Lungs: Dependent subsegmental changes are noted in the posterior aspect of both lower lobes. No focal airspace consolidation. Pleural space: Unremarkable. No significant effusion. No pneumothorax. Heart: The cardiac chambers are normal in size. Prominent coronary artery calcification in the mid to distal LAD and adjacent septal branch is of uncertain clinical significance. No pericardial effusion. Bones/joints: No acute fracture. No dislocation. Soft tissues: Unremarkable. Lymph nodes: Unremarkable. No enlarged lymph nodes. IMPRESSION: 1. There is no evidence for pulmonary embolism. 2. Dependent subsegmental atelectatic changes are noted in the posterior aspect of both lower lobes. No focal airspace consolidation. No pleural effusion or pneumothorax. 3. The cardiac chambers are normal in size. Prominent coronary artery calcification in the mid to distal LAD and adjacent septal branch is of uncertain clinical significance. Electronically signed by: Srikanth Barger MD 08/13/22 20:20 PM
--- NOTE | 2022-08-13 20:24 | CT Scan Report ---
Exam(s): CTA NECK With Contrast IV Amt: 119ML OPTIRAY 320 EXAM: CT Angiography Neck With Intravenous Contrast CLINICAL HISTORY: dizzy, CP/KOHLI. TECHNIQUE: Routine carotid CT angiography protocol was performed with intravenous contrast. NASCET criteria using the distal ICAs for comparison were used for evaluation of stenoses. CTDI is 37.12 mGy and DLP is 1963.61 mGy-cm. Automated exposure control was utilized for the study. A dose lowering technique was utilized adhering to the principles of ALARA. MIP reconstructed images were created and reviewed. CONTRAST: Patient received 119ML OPTIRAY 320 of IV contrast COMPARISON: None. FINDINGS: VASCULATURE: Right common carotid artery: Unremarkable. No occlusion or significant stenosis. No dissection. Right internal carotid artery: Unremarkable. Extracranial segment is patent with no occlusion or significant stenosis. No dissection. Right external carotid artery: Unremarkable. No occlusion. Right vertebral artery: Unremarkable. No occlusion or significant stenosis. No dissection. Left common carotid artery: Unremarkable. No occlusion or significant stenosis. No dissection. Left internal carotid artery: Unremarkable. Extracranial segment is patent with no occlusion or significant stenosis. No dissection. Left external carotid artery: Unremarkable. No occlusion. Left vertebral artery: The left vertebral artery originates from the aortic arch and is patent throughout its course. No occlusion or significant stenosis. No dissection. Brachiocephalic and subclavian arteries: There is a normal variant branching pattern of the proximal great vessels which are patent. Aorta: The aortic arch is patent. No dissection or aneurysm. NECK: Bones/joints: Unremarkable. Soft tissues: Unremarkable. Lung apices: Clear. CAROTID STENOSIS REFERENCE USING NASCET CRITERIA: % ICA stenosis = (1 - narrowest ICA diameter/diameter of distal cervical ICA) x 100. Mild - <50% stenosis. Moderate - 50-69% stenosis. Severe - 70-94% stenosis. Near occlusion - 95-99% stenosis. Occluded - 100% stenosis. IMPRESSION: Negative cervical CTA examination. Electronically signed by: Srikanth Barger MD 08/13/22 20:23 PM
--- NOTE | 2022-08-13 20:34 | CT Scan Report ---
Exam(s): CTA HEAD With Contrast IV Amt: 119ML OPTIRAY 320 EXAM: CT Angiography Head With Intravenous Contrast CLINICAL HISTORY: Reason for exam: dizzy, CP/KOHLI. TECHNIQUE: Axial computed tomographic angiography images of the head with intravenous contrast. CTDI is 37.12 mGy and DLP is 1963.61 mGy-cm. Automated exposure control was utilized for the study. A dose lowering technique was utilized adhering to the principles of ALARA. MIP reconstructed images were created and reviewed. CONTRAST: Patient received 119ML OPTIRAY 320 of IV contrast COMPARISON: No relevant prior studies available. FINDINGS: Right internal carotid artery: No acute findings. Intracranial segment is patent with no significant stenosis. No aneurysm. Right anterior cerebral artery: Unremarkable. No occlusion or significant stenosis. No aneurysm. Right middle cerebral artery: Unremarkable. No occlusion or significant stenosis. No aneurysm. Right posterior cerebral artery: Unremarkable. No occlusion or significant stenosis. No aneurysm. Right vertebral artery: Unremarkable as visualized. Left internal carotid artery: No acute findings. Intracranial segment is patent with no significant stenosis. No aneurysm. Left anterior cerebral artery: Unremarkable. No occlusion or significant stenosis. No aneurysm. Left middle cerebral artery: Unremarkable. No occlusion or significant stenosis. No aneurysm. Left posterior cerebral artery: Unremarkable. No occlusion or significant stenosis. No aneurysm. Left vertebral artery: Unremarkable as visualized. Basilar artery: Unremarkable. No occlusion or significant stenosis. No aneurysm. Dural sinuses/cerebral veins: The visualized dural sinuses are unremarkable. Brain: No abnormal enhancement following contrast administration. IMPRESSION: Negative intracranial CTA examination. Electronically signed by: Srikanth Barger MD 08/13/22 20:33 PM
[2022-08-13] MEDS ORDERED: DOXYCYCLINE HYCLATE 100 MG CAP PO STA (20:36)
[2022-08-13] MEDS ORDERED: KETOROLAC TROMETHAMINE 15 MG/ML VIAL IV ONE (21:13)
--- NOTE | 2022-08-13 22:54 | History & Physical Report ---
Date of Service August 13, 2022 Assessment & Plan (1) Weakness: Plan: 67-year-old male with past medical significant for CAD s/p stent, hyperlipidemia, hypothyroidism comes because of weakness and imbalance no chest discomfort. 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 Chest discomfort Initial troponin and EKG unremarkable Having symptoms on and off for last 2 days History of CAD s/p stent to LAD and also jailed D2 from ostium to mid segment History of multivessel coronary disease on medical management We will follow serial cardiac enzymes and echocardiogram Continue home medications Consult cardiology in a.m. Monitor in telemetry floor Hyperlipidemia On statin DVT prophylaxis SCDs, as patient has thrombocytopenia Disposition Observe in telemetry floor CODE STATUS Full code. (2) Status post insertion of drug-eluting stent into left anterior descending (LAD) artery: (3) Dyslipidemia, goal LDL below 70: History of Present Illness Chief Complaint: Weakness, imbalance, chest discomfort Primary Care Provider: Ngoc Hairston DO 67-year-old male with past medical history significant for CAD s/p stent to LAD and also known stent to jailed D2 from ostium to mid segment also has 60% with RCA lesion managed medically, history of hypothyroidism, dyslipidemia, osteoarthritis, presents with weakness and imbalance going over for the last 2 weeks. Last 2 days imbalance got worse, patient thinks if he bends down he will fall down. Denies any room spinning, no nausea. Has some dizziness when he bends down. Last 2 days he is having on and off chest discomfort 5 /10 in severity, currently has mild chest discomfort. Denies shortness of breath. Today was feeling very cold and weak. No appetite today. No headaches, no blurred visions, no runny nose, no sore throat, no dysphagia. No abdominal pain, normal bowel and bladder movements. Patient states he had a tick bite couple weeks ago near left axilla region. Patient states he lives and works and had many tick bites in the past but was not treated for Lyme disease. Currently resting comfortably and hemodynamically stable. Allergies Allergy/AdvReac Type Severity Reaction Status Date / Time No Known Allergies Allergy Unverified 08/13/22 21:30 Home Medications Medication Instructions Recorded Confirmed Type aspirin 81 mg capsule 81 mg PO DAILY 11/26/21 08/13/22 History levothyroxine 88 mcg tablet 88 mcg PO DAILY 11/26/21 08/13/22 History clopidogrel 75 mg tablet 75 mg PO QAM #30 tabs 11/27/21 08/13/22 Rx nitroglycerin 0.4 mg sublingual 0.4 mg sublingual PRN PRN chest 11/27/21 08/13/22 Rx tablet (Nitrostat) pain #1 btl atorvastatin 80 mg tablet 80 mg PO QAM 02/24/22 08/13/22 History isosorbide mononitrate 30 mg 30 mg PO QAM #30 tabs 02/26/22 08/13/22 Rx tablet,extended release 24 hr Past Med/Surg History Medical History (Updated 08/13/22 @ 23:07 by Donal Amanda MD) Chest pain Social History Smoking Status: Never smoker Hx Alcohol Use: No Hx Substance Use: No Preferred Language: Mongolian Communication Ability: Effective Geriatric Psychiatrist Required: No Beliefs That Will Affect Care: None Current Living Situation: Spouse Feels Safe at Home: Yes Assistive Devices: None Review of Systems Review of Systems: All systems reviewed & are unremarkable except as noted in Subjective Physical Exam Physical Exam: NEEDS EDITING General- adult Head- atraumatic Eyes- PERRL, EOMI, anicteric ENT- oropharynx clear Neck- supple, no JVD, no adenopathy, Lungs- clear to auscultation and percussion Heart- regular rhythm; no murmur, no gallop, no rub appreciated Abdomen- normal bowel sounds, soft, nontender, no masses or hepatosplenomegaly Extremities- no pretibial edema, no erythema Neuro- alert, oriented x 3; PERRL, EOMI; no facial palsy; no dysarthria; motor 5/5 bilaterally finger to nose intact bilaterally, coordination of movements normal, no pronator drift. Skin- warm & dry Results & Data Results & Data Vital Signs (Past 12 Hours) Vital Signs Temp Pulse Resp BP BP Pulse Ox O2 Del Method 08/13/22 22:22 70 08/13/22 21:00 16 129/76 98 08/13/22 19:16 74 20 134/77 96 Room Air 08/13/22 18:45 70 98 Room Air 08/13/22 18:45 21 135/75 98 08/13/22 18:45 Room Air 08/13/22 18:19 71 08/13/22 18:00 36.5 C 76 20 126/71 97 Room Air Laboratory Results Laboratory Results WBC 3.31 K/ul (4.8-10.8) L 08/13/22 18:11 RBC 4.63 M/uL (4.70-6.10) L 08/13/22 18:11 Hgb 14.3 g/dl (14.0-18.0) 08/13/22 18:11 Hct 40.9 % (42.0-52.0) L 08/13/22 18:11 MCV 88.3 fL (80.0-100.0) 08/13/22 18:11 MCH 30.9 pg (25.0-34.0) 08/13/22 18:11 MCHC 35.0 g/dL (32.0-36.0) 08/13/22 18:11 RDW Std Deviation 41.8 fL (36.4-46.3) 08/13/22 18:11 RDW Coeff of Natan 12.9 % (11.5-14.5) 08/13/22 18:11 Plt Count 83 K/uL (130-400) L 08/13/22 18:11 MPV 10.7 fL (9.4-12.4) 08/13/22 18:11 Immature Gran % (Auto) 0.6 % 08/13/22 18:11 Neut % (Auto) 74.3 % 08/13/22 18:11 Lymph % (Auto) 13.6 % 08/13/22 18:11 [place] % (Auto) 11.2 % 08/13/22 18:11 Eos % (Auto) 0.0 % 08/13/22 18:11 Baso % (Auto) 0.3 % 08/13/22 18:11 Neut # (Auto) 2.46 K/uL (1.40-6.50) 08/13/22 18:11 Lymph # (Auto) 0.45 K/uL (1.2-3.4) L 08/13/22 18:11 [place] # (Auto) 0.37 K/uL (0.11-0.59) 08/13/22 18:11 Eos # (Auto) 0.00 K/uL (0-0.50) 08/13/22 18:11 Baso # (Auto) 0.01 K/uL (0-0.2) 08/13/22 18:11 Immature Gran # (Auto) 0.02 K/uL (0.01-0.20) 08/13/22 18:11 Platelet Estimate Decreased (Normal) L 08/13/22 18:11 Echinocytes 1+ 08/13/22 18:11 PT 12.0 Seconds (9.0-12.0) 08/13/22 18:11 INR 1.1 (0.9-1.1) 08/13/22 18:11 APTT 27.8 Seconds (21.0-31.0) 08/13/22 18:11 PTT Ratio 1.0 08/13/22 18:11 Sodium 133 mmol/L (136-145) L 08/13/22 18:11 Potassium 3.9 mmol/L (3.5-5.1) 08/13/22 18:11 Chloride 102 mmol/L (98-107) 08/13/22 18:11 Carbon Dioxide 23 mmol/L (21-32) 08/13/22 18:11 Anion Gap 8 (3-11) 08/13/22 18:11 BUN 24 mg/dl (6-23) H 08/13/22 18:11 Creatinine 1.03 mg/dl (0.6-1.4) 08/13/22 18:11 Est Cr Clr Drug Dosing 73.2 ml/min 08/13/22 18:11 Est GFR ( Amer) 85.5 ml/min 08/13/22 18:11 Est GFR (Non-Af Amer) 73.8 ml/min 08/13/22 18:11 BUN/Creatinine Ratio 23.3 (10-20) H 08/13/22 18:11 Glucose 148 mg/dl (70-99(Fasting)) H 08/13/22 18:11 Calcium 8.9 mg/dl (8.6-10.3) 08/13/22 18:11 Total Bilirubin 1.0 mg/dl (0.2-1.0) 08/13/22 18:11 AST 32 U/L (13-39) 08/13/22 18:11 ALT 33 U/L (7-52) 08/13/22 18:11 Alkaline Phosphatase 63 U/L (34-104) 08/13/22 18:11 Troponin I High Sens 5.4 pg/ml (0-20) 08/13/22 18:11 Total Protein 6.9 gm/dl (6.0-8.3) 08/13/22 18:11 Albumin 4.2 gm/dl (3.4-5.0) 08/13/22 18:11 Globulin 2.7 gm/dl (2.5-4.0) 08/13/22 18:11 Albumin/Globulin Ratio 1.6 (0.9-2) 08/13/22 18:11 Lipase 34 U/L (11-82) 08/13/22 18:11 Procalcitonin 0.18 ng/ml (0-0.5) 08/13/22 18:11 Anaplasma Smear See Comment 08/13/22 18:11 Lyme Disease IgG Ab Negative (Negative) 08/13/22 18:11 Lyme Disease IgM Ab Negative (Negative) 08/13/22 18:11 SARS-CoV-2, RNA, NAAT NEGATIVE (NEGATIVE) 08/13/22 18:45 Impressions Chest X-Ray 08/13/22 18:05 SINGLE VIEW CHEST CLINICAL HISTORY: Atypical chest pain. FINDINGS: An AP, portable, upright chest radiograph is compared to study dated 02/24/2022. The heart is mildly enlarged. The pulmonary vasculature is noncongested. The lungs and pleural spaces are clear noting mild bibasilar scarring/atelectasis. No pneumothorax is seen. The bony thorax is grossly intact. IMPRESSION: Mild cardiomegaly with no active disease in the chest. ACT 112: Negative or not required by law. Electronically signed by: Genaro Vásquez M.D. 08/13/2022 7:39 PM Chest CTA 08/13/22 18:25 Exam(s): CTA CHEST IV Amt: 119ML OPTIRAY 320 EXAM: CT Angiography Chest With Intravenous Contrast CLINICAL HISTORY: Evaluate for PE, dizzy, SOB/CP. TECHNIQUE: Axial computed tomographic angiography images of the chest with intravenous contrast. CTDI is 37.12 mGy and DLP is 1963.61 mGy-cm. Automated exposure control was utilized for the study. A dose lowering technique was utilized adhering to the principles of ALARA. MIP reconstructed images were created and reviewed. COMPARISON: No relevant prior studies available. FINDINGS: Pulmonary arteries: There is no evidence for pulmonary embolism. Aorta: No acute findings. No thoracic aortic aneurysm. Lungs: Dependent subsegmental changes are noted in the posterior aspect of both lower lobes. No focal airspace consolidation. Pleural space: Unremarkable. No significant effusion. No pneumothorax. Heart: The cardiac chambers are normal in size. Prominent coronary artery calcification in the mid to distal LAD and adjacent septal branch is of uncertain clinical significance. No pericardial effusion. Bones/joints: No acute fracture. No dislocation. Soft tissues: Unremarkable. Lymph nodes: Unremarkable. No enlarged lymph nodes. IMPRESSION: 1. There is no evidence for pulmonary embolism. 2. Dependent subsegmental atelectatic changes are noted in the posterior aspect of both lower lobes. No focal airspace consolidation. No pleural effusion or pneumothorax. 3. The cardiac chambers are normal in size. Prominent coronary artery calcification in the mid to distal LAD and adjacent septal branch is of uncertain clinical significance. Electronically signed by: Srikanth Barger MD 08/13/22 20:[address] 08/13/22 18:25 Exam(s): CT HEAD Without Contrast EXAM: CT Head Without Intravenous Contrast CLINICAL HISTORY: dizzy, pain. TECHNIQUE: Axial computed tomography images of the head/brain without intravenous contrast. CTDI is 37.12 mGy and DLP is 1963.61 mGy-cm. Automated exposure control was utilized for the study. A dose lowering technique was utilized adhering to the principles of ALARA. COMPARISON: No relevant prior studies available. FINDINGS: Brain: Unremarkable. No hemorrhage. No significant white matter disease. No edema. Ventricles: Unremarkable. No ventriculomegaly. Bones/joints: Unremarkable. No acute fracture. Soft tissues: Unremarkable. Sinuses: The paranasal sinuses are well-aerated without mucosal thickening or air-fluid levels. Mastoid air cells: Unremarkable as visualized. No mastoid effusion. IMPRESSION: No acute intracranial process identified. Electronically signed by: Srikanth Barger MD 08/13/22 20:16 PM Head CTA 08/13/22 18:25 Exam(s): CTA HEAD With Contrast IV Amt: 119ML OPTIRAY 320 EXAM: CT Angiography Head With Intravenous Contrast CLINICAL HISTORY: Reason for exam: dizzy, CP/KOHLI. TECHNIQUE: Axial computed tomographic angiography images of the head with intravenous contrast. CTDI is 37.12 mGy and DLP is 1963.61 mGy-cm. Automated exposure control was utilized for the study. A dose lowering technique was utilized adhering to the principles of ALARA. MIP reconstructed images were created and reviewed. CONTRAST: Patient received 119ML OPTIRAY 320 of IV contrast COMPARISON: No relevant prior studies available. FINDINGS: Right internal carotid artery: No acute findings. Intracranial segment is patent with no significant stenosis. No aneurysm. Right anterior cerebral artery: Unremarkable. No occlusion or significant stenosis. No aneurysm. Right middle cerebral artery: Unremarkable. No occlusion or significant stenosis. No aneurysm. Right posterior cerebral artery: Unremarkable. No occlusion or significant stenosis. No aneurysm. Right vertebral artery: Unremarkable as visualized. Left internal carotid artery: No acute findings. Intracranial segment is patent with no significant stenosis. No aneurysm. Left anterior cerebral artery: Unremarkable. No occlusion or significant stenosis. No aneurysm. Left middle cerebral artery: Unremarkable. No occlusion or significant stenosis. No aneurysm. Left posterior cerebral artery: Unremarkable. No occlusion or significant stenosis. No aneurysm. Left vertebral artery: Unremarkable as visualized. Basilar artery: Unremarkable. No occlusion or significant stenosis. No aneurysm. Dural sinuses/cerebral veins: The visualized dural sinuses are unremarkable. Brain: No abnormal enhancement following contrast administration. IMPRESSION: Negative intracranial CTA examination. Electronically signed by: Srikanth Barger MD 08/13/22 20:33 PM Neck CTA 08/13/22 18:25 Exam(s): CTA NECK With Contrast IV Amt: 119ML OPTIRAY 320 EXAM: CT Angiography Neck With Intravenous Contrast CLINICAL HISTORY: dizzy, CP/KOHLI. TECHNIQUE: Routine carotid CT angiography protocol was performed with intravenous contrast. NASCET criteria using the distal ICAs for comparison were used for evaluation of stenoses. CTDI is 37.12 mGy and DLP is 1963.61 mGy-cm. Automated exposure control was utilized for the study. A dose lowering technique was utilized adhering to the principles of ALARA. MIP reconstructed images were created and reviewed. CONTRAST: Patient received 119ML OPTIRAY 320 of IV contrast COMPARISON: None. FINDINGS: VASCULATURE: Right common carotid artery: Unremarkable. No occlusion or significant stenosis. No dissection. Right internal carotid artery: Unremarkable. Extracranial segment is patent with no occlusion or significant stenosis. No dissection. Right external carotid artery: Unremarkable. No occlusion. Right vertebral artery: Unremarkable. No occlusion or significant stenosis. No dissection. Left common carotid artery: Unremarkable. No occlusion or significant stenosis. No dissection. Left internal carotid artery: Unremarkable. Extracranial segment is patent with no occlusion or significant stenosis. No dissection. Left external carotid artery: Unremarkable. No occlusion. Left vertebral artery: The left vertebral artery originates from the aortic arch and is patent throughout its course. No occlusion or significant stenosis. No dissection. Brachiocephalic and subclavian arteries: There is a normal variant branching pattern of the proximal great vessels which are patent. Aorta: The aortic arch is patent. No dissection or aneurysm. NECK: Bones/joints: Unremarkable. Soft tissues: Unremarkable. Lung apices: Clear. CAROTID STENOSIS REFERENCE USING NASCET CRITERIA: % ICA stenosis = (1 - narrowest ICA diameter/diameter of distal cervical ICA) x 100. Mild - <50% stenosis. Moderate - 50-69% stenosis. Severe - 70-94% stenosis. Near occlusion - 95-99% stenosis. Occluded - 100% stenosis. IMPRESSION: Negative cervical CTA examination. Electronically signed by: Srikanth Barger MD 08/13/22 20:23 PM Code Status & VTE Plan VTE Prophylaxis Plan VTE Prophylaxis will be ordered: Yes
[2022-08-13] MEDS ORDERED: ASPIRIN 81 MG ECTAB PO STA (23:17)
[2022-08-13] MEDS ORDERED: CLOPIDOGREL BISULFATE 75 MG TAB PO ONE (23:17)
[2022-08-13] MEDS ORDERED: NITROGLYCERIN SL 0.4 MG/TAB TAB SL PRN (23:48)
[2022-08-13] MEDS ORDERED: ACETAMINOPHEN 325 MG TAB PO PRN (23:48)
[2022-08-13] MEDS: SODIUM CHLORIDE 0.9% 1000ML 1,000 ML IV SCH (23:56)
[2022-08-14] MEDS: LEVOTHYROXINE SODIUM 88 MCG TABLET PO SCH (05:52)
[2022-08-14 06:36] LABS: Basophils # (auto) 0.01 K/uL (0-0.2); Basophils % (auto) 0.5 %; Hematocrit (blood only) 39.6 % (42.0-52.0); Hemoglobin 13.8 g/dl (14.0-18.0); Immature Granulocytes # (auto) 0.01 K/uL (0.01-0.20); Immature Granulocytes % (auto) 0.5 %; Lymphocytes # (auto) 0.34 K/uL (1.2-3.4); Lymphocytes % (auto) 15.7 %; Mean Corpuscular Hemoglobin 31.3 pg (25.0-34.0); Mean Corpuscular Hgb Conc 34.8 g/dL (32.0-36.0); Mean Corpuscular Volume 89.8 fL (80.0-100.0); Monocytes # (auto) 0.29 K/uL (0.11-0.59); Monocytes % (auto) 13.4 %; Neutrophils # (auto) 1.52 K/uL (1.40-6.50); Neutrophils % (auto) 69.9 %; Platelet Count 69 K/uL (130-400); RDW Coefficient of Variation 12.9 % (11.5-14.5); RDW Standard Deviation 42.6 fL (36.4-46.3); Red Blood Count 4.41 M/uL (4.70-6.10); White Blood Count 2.17 K/ul (4.8-10.8)
[2022-08-14 06:47] LABS: BUN Creatinine Ratio 17.7 (10-20); Calcium 7.8 mg/dl (8.6-10.3); Creatinine Clr Calc Pharmacy 65.7 ml/min; Est GFR (African American) 76.4 ml/min; Magnesium 1.9 mg/dl (1.7-2.4); Potassium 4.1 mmol/L (3.5-5.1)
--- NOTE | 2022-08-14 07:13 | Electrocardiogram Report ---
Test Reason : Blood Pressure : / mmHG Vent. Rate : 072 BPM Atrial Rate : 072 BPM P-R Int : 150 ms QRS Dur : 098 ms QT Int : 390 ms P-R-T Axes : 068 064 063 degrees QTc Int : 427 ms Normal sinus rhythm Normal ECG When compared with ECG of 26-FEB-2022 06:00, No significant change was found Confirmed by Srinivas Jc ([id number]) on 08/14/2022 7:13:22 AM Referred By: REFERRED SELF Confirmed By:Duong Jc
--- NOTE | 2022-08-14 07:18 | Electrocardiogram Report ---
Test Reason : Blood Pressure : / mmHG Vent. Rate : 062 BPM Atrial Rate : 062 BPM P-R Int : 166 ms QRS Dur : 098 ms QT Int : 416 ms P-R-T Axes : 055 062 050 degrees QTc Int : 422 ms Normal sinus rhythm with sinus arrhythmia Normal ECG When compared with ECG of 13-AUG-2022 18:09, (unconfirmed) No significant change was found Confirmed by Srinivas Jc ([id number]) on 08/14/2022 7:18:06 AM Referred By: REFERRED SELF Confirmed By:Duong Jc
[2022-08-14] MEDS: DOXYCYCLINE HYCLATE 100 MG in DEXTROSE 5% 100 ML IV SCH ×2 (09:12→20:29)
--- NOTE | 2022-08-14 09:43 | Cardiology Consultation ---
Date of Consultation August 14, 2022 Assessment & Plan (1) Weakness: (2) Unsteady gait: (3) CAD (coronary artery disease): (4) Stented coronary artery: Plan I do not believe any additional cardiac testing is indicated at this time. From a cardiac standpoint the patient is clinically stable. I would continue his current medications. I also encouraged the patient to remain out of the heat and remain well-hydrated. He can keep his follow-up appointment with Chucky. History of Present Illness Attending Physician: Sander Salmeron MD History of Present Illness This is a 67-year-old male patient with history of coronary artery disease. In February he presented with unstable angina and a cardiac catheterization was found to have a high-grade stenosis of D2 and received a drug-eluting stent. He had a previous LAD stent which at that time was widely patent. Recently the patient had a tick bite and developed a small rash around the area of the tick. The tick was not engorged and his was able to remove it easily. 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 The patient has felt extremely weak, fatigued and tired. He is also had some imbalance when he peyman forward to pick something up. He does not really elicit a complaint of chest pain to me. Since being admitted he has been hydrated. He has also been started on doxycycline for treatment of anaplasmosis. Titers for Lyme's and anaplasmosis were negative. Cardiac markers are negative. EKG is essentially normal. He had a CT of the chest was negative for pulmonary emboli. He also had a CT of his carotids and brain that was also negative. He has no complaints today and states he actually feels better. Allergies Allergy/AdvReac Type Severity Reaction Status Date / Time No Known Allergies Allergy Unverified 08/13/22 21:30 Home Medications Medication Instructions Recorded Confirmed Type aspirin 81 mg capsule 81 mg PO DAILY 11/26/21 08/13/22 History levothyroxine 88 mcg tablet 88 mcg PO DAILY 11/26/21 08/13/22 History clopidogrel 75 mg tablet 75 mg PO QAM #30 tabs 11/27/21 08/13/22 Rx nitroglycerin 0.4 mg sublingual 0.4 mg sublingual PRN PRN chest 11/27/21 08/13/22 Rx tablet (Nitrostat) pain #1 btl atorvastatin 80 mg tablet 80 mg PO QAM 02/24/22 08/13/22 History isosorbide mononitrate 30 mg 30 mg PO QAM #30 tabs 02/26/22 08/13/22 Rx tablet,extended release 24 hr Patient History Medical History Chest pain Social History Smoking Status: Never smoker Hx Alcohol Use: No Hx Substance Use: No Preferred Language: Guinean Communication Ability: Effective Enforcement Manager Required: No Beliefs That Will Affect Care: None Current Living Situation: Spouse Other Information That Helps Us Care for You: No Feels Safe at Home: Yes Safety Concerns: Feels Safe At This Time Assistive Devices: None Review of Systems Review of Systems: Review of Systems: See HPI for pertinent positives. All other 10 point review of systems are negative. Physical Exam Physical Exam: General: no acute distress and stated age Head: normocephalic, no masses, lesions, tenderness or abnormalities Eyes: conjunctiva are pink and non-injected, sclera clear Neck: supple, no adenopathy, no bruits, normal jugular venous pulse, no hepatojugular reflux Chest: normal shape and normal respiratory effort Lungs: clear to auscultation and percussion Cardiac Exam: - regular rate & rhythm, no murmurs gallops or rubs - normal S1, normal S2 Pulses: 2(+) throughout Abdomen: abdomen soft, non-tender, no abnormal masses and no hepatosplenomegaly Musculoskeletal: no gait disturbance, no joint inflammation, no deforming arthritis Extremities: no edema and no cyanosis Neuro: grossly normal exam Results & Data Vital Signs (Past 12 Hours) Vital Signs Temp Pulse Pulse Resp BP Pulse Ox O2 Del Method 08/14/22 07:13 36.9 C 60 18 114/67 97 Room Air 08/14/22 04:05 38 C H 08/14/22 02:51 39.3 C H 93 H 16 124/74 94 Room Air 08/14/22 00:35 72 08/13/22 23:45 36.9 C 77 18 153/85 H 94 Room Air 08/13/22 23:33 Room Air 08/13/22 22:22 70 Laboratory Results Laboratory Results - last 24 hr 08/13/22 08/13/22 08/13/22 18:11 18:11 18:11 WBC 3.31 L RBC 4.63 L Hgb 14.3 Hct 40.9 L MCV 88.3 MCH 30.9 MCHC 35.0 RDW Std Deviation 41.8 RDW Coeff of Natan 12.9 Plt Count 83 L MPV 10.7 Immature Gran % (Auto) 0.6 Neut % (Auto) 74.3 Lymph % (Auto) 13.6 Preble % (Auto) 11.2 Eos % (Auto) 0.0 Baso % (Auto) 0.3 Neut # (Auto) 2.46 Lymph # (Auto) 0.45 L Preble # (Auto) 0.37 Eos # (Auto) 0.00 Baso # (Auto) 0.01 Immature Gran # (Auto) 0.02 Platelet Estimate Decreased L Echinocytes 1+ PT 12.0 INR 1.1 APTT 27.8 PTT Ratio 1.0 Sodium 133 L Potassium 3.9 Chloride 102 Carbon Dioxide 23 Anion Gap 8 BUN 24 H Creatinine 1.03 Est Cr Clr Drug Dosing 73.2 Est GFR ( Amer) 85.5 Est GFR (Non-Af Amer) 73.8 BUN/Creatinine Ratio 23.3 H Glucose 148 H Calcium 8.9 Magnesium Total Bilirubin 1.0 AST 32 ALT 33 Alkaline Phosphatase 63 Troponin I High Sens 5.4 Total Protein 6.9 Albumin 4.2 Globulin 2.7 Albumin/Globulin Ratio 1.6 Lipase 34 Procalcitonin Anaplasma Smear See Comment A. phagocytophilum DNA Babesia Smear Babesia microti DNA PCR Lyme Disease IgG Ab Lyme Disease IgM Ab SARS-CoV-2, RNA, NAAT 08/13/22 08/13/22 08/14/22 18:11 18:45 05:24 WBC RBC Hgb Hct MCV MCH MCHC RDW Std Deviation RDW Coeff of Natan Plt Count MPV Immature Gran % (Auto) Neut % (Auto) Lymph % (Auto) Preble % (Auto) Eos % (Auto) Baso % (Auto) Neut # (Auto) Lymph # (Auto) Preble # (Auto) Eos # (Auto) Baso # (Auto) Immature Gran # (Auto) Platelet Estimate Echinocytes PT INR APTT PTT Ratio Sodium Potassium Chloride Carbon Dioxide Anion Gap BUN Creatinine Est Cr Clr Drug Dosing Est GFR ( Amer) Est GFR (Non-Af Amer) BUN/Creatinine Ratio Glucose Calcium Magnesium Total Bilirubin AST ALT Alkaline Phosphatase Troponin I High Sens 9.1 Total Protein Albumin Globulin Albumin/Globulin Ratio Lipase Procalcitonin 0.18 Anaplasma Smear A. phagocytophilum DNA Babesia Smear Babesia microti DNA PCR Lyme Disease IgG Ab Negative Lyme Disease IgM Ab Negative SARS-CoV-2, RNA, NAAT NEGATIVE 08/14/22 08/14/22 08/14/22 05:24 05:24 07:49 WBC 2.17 L RBC 4.41 L Hgb 13.8 L Hct 39.6 L MCV 89.8 MCH 31.3 MCHC 34.8 RDW Std Deviation 42.6 RDW Coeff of Natan 12.9 Plt Count 69 L MPV 11.0 Immature Gran % (Auto) 0.5 Neut % (Auto) 69.9 Lymph % (Auto) 15.7 Preble % (Auto) 13.4 Eos % (Auto) 0.0 Baso % (Auto) 0.5 Neut # (Auto) 1.52 Lymph # (Auto) 0.34 L Preble # (Auto) 0.29 Eos # (Auto) 0.00 Baso # (Auto) 0.01 Immature Gran # (Auto) 0.01 Platelet Estimate Echinocytes PT INR APTT PTT Ratio Sodium 136 Potassium 4.1 Chloride 106 Carbon Dioxide 26 Anion Gap 4 BUN 20 Creatinine 1.13 Est Cr Clr Drug Dosing 65.7 Est GFR ( Amer) 76.4 Est GFR (Non-Af Amer) 66.0 BUN/Creatinine Ratio 17.7 Glucose 130 H Calcium 7.8 L Magnesium 1.9 Total Bilirubin AST ALT Alkaline Phosphatase Troponin I High Sens Total Protein Albumin Globulin Albumin/Globulin Ratio Lipase Procalcitonin Anaplasma Smear See Comment A. phagocytophilum DNA Babesia Smear See Comment Babesia microti DNA PCR Lyme Disease IgG Ab Lyme Disease IgM Ab SARS-CoV-2, RNA, NAAT 08/14/22 08/14/22 07:49 07:49 WBC RBC Hgb Hct MCV MCH MCHC RDW Std Deviation RDW Coeff of Natan Plt Count MPV Immature Gran % (Auto) Neut % (Auto) Lymph % (Auto) Preble % (Auto) Eos % (Auto) Baso % (Auto) Neut # (Auto) Lymph # (Auto) Preble # (Auto) Eos # (Auto) Baso # (Auto) Immature Gran # (Auto) Platelet Estimate Echinocytes PT INR APTT PTT Ratio Sodium Potassium Chloride Carbon Dioxide Anion Gap BUN Creatinine Est Cr Clr Drug Dosing Est GFR ( Amer) Est GFR (Non-Af Amer) BUN/Creatinine Ratio Glucose Calcium Magnesium Total Bilirubin AST ALT Alkaline Phosphatase Troponin I High Sens Total Protein Albumin Globulin Albumin/Globulin Ratio Lipase Procalcitonin Anaplasma Smear A. phagocytophilum DNA Pending Babesia Smear Babesia microti DNA PCR Pending Lyme Disease IgG Ab Lyme Disease IgM Ab SARS-CoV-2, RNA, NAAT Medications Administered Current Inpatient Medications Acetaminophen (Acetaminophen 325 Mg Tab) 650 mg PO Q4H PRN PRN Reason: Pain or Fever Stop: 09/12/22 23:47 Last Admin: 08/14/22 02:51 Dose: 650 mg Aspirin (Aspirin 81 Mg Ectab) 81 mg PO DAILY [facility] Stop: 09/13/22 08:59 Last Admin: 08/14/22 10:03 Dose: 81 mg Atorvastatin Calcium (Atorvastatin 40 Mg Tab) 80 mg PO [facility] Stop: 09/13/22 08:59 Last Admin: 08/14/22 10:03 Dose: 80 mg Clopidogrel Bisulfate (Clopidogrel Bisulfate 75 Mg Tab) 75 mg PO [facility] Stop: 09/13/22 08:59 Last Admin: 08/14/22 10:03 Dose: 75 mg Sodium Chloride (Nss 1000ml) 1,000 mls @ 80 mls/hr IV .[id number] [facility] Stop: 08/15/22 00:47 Last Admin: 08/13/22 23:56 Dose: 80 mls/hr Doxycycline Hyclate 100 mg/ (Dextrose) 110 mls @ 50 mls/hr IV Q12H [facility] Stop: 08/28/22 08:59 Last Admin: 08/14/22 09:12 Dose: 50 mls/hr Isosorbide Mononitrate (Isosorbide [place] Extended Rel 30 Mg Tabcr) [facility] [place]: 09/13/22 08:59 Last Admin: 08/14/22 10:03 Dose: 30 mg Levothyroxine Sodium (Levothyroxine Sodium 88 Mcg Tablet) [facility] Stop: 09/13/22 06:29 Last Admin: 08/14/22 05:52 Dose: 88 mcg Nitroglycerin (Nitroglycerin Sl 0.4 Mg/Tab Tab) 0.4 mg SL Q5M PRN PRN Reason: Chest Pain Stop: 09/12/22 23:47
[2022-08-14] MEDS: ASPIRIN 81 MG ECTAB PO SCH (10:03)
[2022-08-14] MEDS: ATORVASTATIN 40 MG TAB PO SCH (10:03)
[2022-08-14] MEDS: CLOPIDOGREL BISULFATE 75 MG TAB PO SCH (10:03)
[2022-08-14] MEDS: ISOSORBIDE MONO EXTENDED REL 30 MG TABCR PO SCH (10:03)
--- NOTE | 2022-08-14 11:07 | Hospitalist Progress Note ---
Date of Service August 14, 2022 Assessment & Plan (1) Weakness: Plan: 67-year-old male with past medical significant for CAD s/p stent, hyperlipidemia, hypothyroidism comes because of weakness and imbalance no chest discomfort. Weakness Imbalance Stroke work-up with CTA head and neck and CT head unremarkable Had tick bite 3 weeks ago-did not report to his PCP and did not have any test before Leukopenia and thrombocytopenia present Initial anaplasmosis smear has been negative and will order for babesiosis tests as well-final PCR testing is pending Started on doxycycline and will monitor response PT OT when stable Has been feeling better since this morning Pancytopenia Low white count and low platelet with minimal decrease in hemoglobin No signs of hemolysis and bilirubin remains normal Could be secondary to tick bite infection We will monitor CBC while in the hospital Chest discomfort Initial troponin and EKG unremarkable Having symptoms on and off for last 2 days History of CAD s/p stent to LAD and also jailed D2 from ostium to mid segment History of multivessel coronary disease on medical management We will follow serial cardiac enzymes and echocardiogram-serial cardiac enzymes have been unremarkable and echo remains unremarkable to Continue home medications Consult cardiology in a.m.-appreciate input and recommendation No arrhythmias and no more chest pain and remains stable cardiac pereira Hyperlipidemia On statin DVT prophylaxis SCDs, as patient has thrombocytopenia Disposition Observe in telemetry floor CODE STATUS Full code. (2) Status post insertion of drug-eluting stent into left anterior descending (LAD) artery: (3) Dyslipidemia, goal LDL below 70: Admission and Anticipated Discharge Date Admission Date: August 13, 2022 Subjective 08/14/2022 The patient was seen and examined in telemetry unit He remains stable today and denies any more chest pressure and or chest pain Weakness has been improving Review of Systems Review of Systems: All systems reviewed and are unremarkable except as noted below Physical Exam Physical Exam: Lying in bed comfortably Constitutional: + ill appearing and average body habitus Eyes: PERRL, conjunctivae normal, anicteric sclerae ENMT: external ear and nose normal, oropharynx normal Neck: trachea midline, no thyromegaly Respiratory: no respiratory distress Auscultation: lungs clear to a uscultation bilaterally Cardiovascular: Rate/Rhythm: regular rate and regular rhythm; not tachycardic Heart Sounds: normal S1 and normal S2; no murmur Extremities: no edema Gastrointestinal (Abdomen): Inspection/Auscultation: normal bowel sounds; abdomen not distended Percussion/Palpation: abdomen soft; abdomen nontender Musculoskeletal: no cyanosis or clubbing, extremities motor strength 5/5 Skin: No rash Neurologic: normal touch/pain/proprioception and moves all extremities; no focal motor deficits Psychiatric: A+Ox3, euthymic affect Lymphatic: no cervical or axillary lymphadenopathy Results & Data Results & Data Vital Signs (Past 12 Hours) Vital Signs Temp Pulse Pulse Resp BP Pulse Ox O2 Del Method 08/14/22 10:21 72 08/14/22 07:13 36.9 C 60 18 114/67 97 Room Air 08/14/22 04:05 38 C H 08/14/22 02:51 39.3 C H 93 H 16 124/74 94 Room Air 08/14/22 00:35 72 08/13/22 23:45 36.9 C 77 18 153/85 H 94 Room Air 08/13/22 23:33 Room Air Laboratory Results Short CBC 08/13/22 08/14/22 Range/Units 18:11 05:24 WBC 3.31 L 2.17 L (4.8-10.8) K/ul Hgb 14.3 13.8 L (14.0-18.0) g/dl Hct 40.9 L 39.6 L (42.0-52.0) % Plt Count 83 L 69 L (130-400) K/uL BMP 08/13/22 08/14/22 18:11 05:24 Sodium 133 L 136 Potassium 3.9 4.1 Chloride 102 106 Carbon Dioxide 23 26 BUN 24 H 20 Creatinine 1.03 1.13 Glucose 148 H 130 H Calcium 8.9 7.8 L Liver Function 08/13/22 Range/Units 18:11 Total Bilirubin 1.0 (0.2-1.0) mg/dl AST 32 (13-39) U/L ALT 33 (7-52) U/L Alkaline Phosphatase 63 (34-104) U/L Albumin 4.2 (3.4-5.0) gm/dl Medications Administered Current Inpatient Medications Acetaminophen (Acetaminophen 325 Mg Tab) 650 mg PO Q4H PRN PRN Reason: Pain or Fever Stop: 09/12/22 23:47 Last Admin: 08/14/22 02:51 Dose: 650 mg Aspirin (Aspirin 81 Mg Ectab) 81 mg PO DAILY [facility] Stop: 09/13/22 08:59 Last Admin: 08/14/22 10:03 Dose: 81 mg Atorvastatin Calcium (Atorvastatin 40 Mg Tab) 80 mg PO [facility] Stop: 09/13/22 08:59 Last Admin: 08/14/22 10:03 Dose: 80 mg Clopidogrel Bisulfate (Clopidogrel Bisulfate 75 Mg Tab) 75 mg PO [facility] Stop: 09/13/22 08:59 Last Admin: 08/14/22 10:03 Dose: 75 mg Sodium Chloride (Nss 1000ml) 1,000 mls @ 80 mls/hr IV .[id number] [facility] Stop: 08/15/22 00:47 Last Admin: 08/13/22 23:56 Dose: 80 mls/hr Doxycycline Hyclate 100 mg/ (Dextrose) 110 mls @ 50 mls/hr IV Q12H [facility] Stop: 08/28/22 08:59 Last Admin: 08/14/22 09:12 Dose: 50 mls/hr Isosorbide Mononitrate (Isosorbide Cole Extended Rel 30 Mg Tabcr) 30 mg PO [facility] Stop: 09/13/22 08:59 Last Admin: 08/14/22 10:03 Dose: 30 mg Levothyroxine Sodium (Levothyroxine Sodium 88 Mcg Tablet) [facility] Stop: 09/13/22 06:29 Last Admin: 08/14/22 05:52 Dose: 88 mcg Nitroglycerin (Nitroglycerin Sl 0.4 Mg/Tab Tab) 0.4 mg SL Q5M PRN PRN Reason: Chest Pain Stop: 09/12/22 23:47
[2022-08-14] MEDS: SODIUM CHLORIDE 0.9% 1000ML 1,000 ML IV SCH (12:52)
[2022-08-15] MEDS: LEVOTHYROXINE SODIUM 88 MCG TABLET PO SCH (05:48)
[2022-08-15 06:40] LABS: Hemoglobin 13.3 g/dl (14.0-18.0); Mean Corpuscular Hemoglobin 31.2 pg (25.0-34.0); Mean Corpuscular Volume 89.2 fL (80.0-100.0); Mean Platelet Volume 11.4 fL (9.4-12.4); Platelet Count 72 K/uL (130-400); RDW Standard Deviation 42.5 fL (36.4-46.3); Red Blood Count 4.26 M/uL (4.70-6.10); White Blood Count 2.78 K/ul (4.8-10.8)
[2022-08-15 06:50] LABS: Basophils # (auto) 0.02 K/uL (0-0.2); Basophils % (auto) 0.7 %; Eosinophils # (auto) 0.05 K/uL (0-0.50); Eosinophils % (auto) 1.8 %; Immature Granulocytes # (auto) 0.01 K/uL (0.01-0.20); Immature Granulocytes % (auto) 0.4 %; Lymphocytes # (auto) 0.98 K/uL (1.2-3.4); Lymphocytes % (auto) 35.3 %; Monocytes # (auto) 0.46 K/uL (0.11-0.59); Monocytes % (auto) 16.5 %; Neutrophils # (auto) 1.26 K/uL (1.40-6.50); Neutrophils % (auto) 45.3 %
[2022-08-15 06:51] LABS: Albumin Globulin Ratio 1.4 (0.9-2); Albumin Level 3.3 gm/dl (3.4-5.0); BUN Creatinine Ratio 19.6 (10-20); Bilirubin,Total 0.7 mg/dl (0.2-1.0); Calcium 7.6 mg/dl (8.6-10.3); Creatinine Clr Calc Pharmacy 80.7 ml/min; Est GFR (Non-African American) 84.6 ml/min; Globulin 2.4 gm/dl (2.5-4.0); Potassium 4.2 mmol/L (3.5-5.1); Total Protein 5.7 gm/dl (6.0-8.3)
--- NOTE | 2022-08-15 07:08 | Electrocardiogram Report ---
Test Reason : Blood Pressure : / mmHG Vent. Rate : 062 BPM Atrial Rate : 062 BPM P-R Int : 168 ms QRS Dur : 094 ms QT Int : 424 ms P-R-T Axes : 063 026 031 degrees QTc Int : 430 ms Normal sinus rhythm Normal ECG When compared with ECG of 14-AUG-2022 05:56, No significant change was found Confirmed by Srinivas Jc ([id number]) on 08/15/2022 7:07:56 AM Referred By: REFERRED SELF Confirmed By:Duong Jc
[2022-08-15] MEDS: ATORVASTATIN 40 MG TAB PO SCH (09:14)
[2022-08-15] MEDS: ASPIRIN 81 MG ECTAB PO SCH (09:14)
[2022-08-15] MEDS: ISOSORBIDE MONO EXTENDED REL 30 MG TABCR PO SCH (09:15)
[2022-08-15] MEDS: CLOPIDOGREL BISULFATE 75 MG TAB PO SCH (09:15)
[2022-08-15] MEDS: DOXYCYCLINE HYCLATE 100 MG in DEXTROSE 5% 100 ML IV SCH (09:16)
--- NOTE | 2022-08-15 10:50 | Hospitalist Progress Note ---
Date of Service August 15, 2022 Assessment & Plan (1) Weakness: Plan: 67-year-old male with past medical significant for CAD s/p stent, hyperlipidemia, hypothyroidism comes because of weakness and imbalance no chest discomfort. Weakness Imbalance Stroke work-up with CTA head and neck and CT head unremarkable Had tick bite 3 weeks ago-did not report to his PCP and did not have any test before Leukopenia and thrombocytopenia present Initial anaplasmosis smear has been negative and will order for babesiosis tests as well-final PCR testing is pending Started on doxycycline and will monitor response Remains independent and has been ambulating in the hallway without any symptoms Weakness is improved and he wants to be discharged Pancytopenia Low white count and low platelet with minimal decrease in hemoglobin No signs of hemolysis and bilirubin remains normal Could be secondary to tick bite infection We will monitor CBC while in the hospital Pancytopenia is slightly better specially the platelet is minimally improved and not any worse Likely secondary to tickborne disease and is still waiting for anaplasmosis and babesiosis PCR testing He will be discharged home this afternoon on doxycycline and will have appointment with PCP within 7 days Chest discomfort Initial troponin and EKG unremarkable Having symptoms on and off for last 2 days History of CAD s/p stent to LAD and also jailed D2 from ostium to mid segment History of multivessel coronary disease on medical management We will follow serial cardiac enzymes and echocardiogram-serial cardiac enzymes have been unremarkable and echo remains unremarkable to Continue home medications Consult cardiology in a.m.-appreciate input and recommendation No arrhythmias and no more chest pain and remains stable cardiac pereira Cardiology cleared him Hyperlipidemia On statin DVT prophylaxis SCDs, as patient has thrombocytopenia Disposition Observe in telemetry floor CODE STATUS Full code. (2) Status post insertion of drug-eluting stent into left anterior descending (LAD) artery: (3) Dyslipidemia, goal LDL below 70: Admission and Anticipated Discharge Date Admission Date: August 13, 2022 Subjective 08/14/2022 The patient was seen and examined in telemetry unit He remains stable today and denies any more chest pressure and or chest pain Weakness has been improving 08/15/2022 The patient was seen and examined in telemetry unit He denies any more symptoms of chest pain, dizziness or palpitation He has been ambulating without any difficulties Will be discharged home this afternoon Review of Systems Review of Systems: All systems reviewed and are unremarkable except as noted below Physical Exam Physical Exam: Lying in bed comfortably Constitutional: + ill appearing and average body habitus Eyes: PERRL, conjunctivae normal, anicteric sclerae ENMT: external ear and nose normal, oropharynx normal Neck: trachea midline, no thyromegaly Respiratory: no respiratory distress Auscultation: lungs clear to auscultation bilaterally Cardiovascular: Rate/Rhythm: regular rate and regular rhythm; not tachycardic Heart Sounds: normal S1 and normal S2; no murmur Extremities: no edema Gastrointestinal (Abdomen): Inspection/Auscultation: normal bowel sounds; abdomen not distended Percussion/Palpation: abdomen soft; abdomen nontender Musculoskeletal: no cyanosis or clubbing, extremities motor strength 5/5 Neurologic: normal touch/pain/proprioception and moves all extremities; no focal motor deficits Psychiatric: A+Ox3, euthymic affect Lymphatic: no cervical or axillary lymphadenopathy Results & Data Results & Data Vital Signs (Past 12 Hours) Vital Signs Temp Pulse Pulse Resp BP Pulse Ox O2 Del Method 08/15/22 08:12 62 08/15/22 07:13 37 C 61 18 126/71 96 Room Air 08/14/22 23:48 59 L 08/15/22 02:00 36.8 C 70 19 125/74 98 Room Air 08/14/22 23:00 36.8 C 57 L 16 117/63 96 Room Air Laboratory Results Short CBC 08/15/22 Range/Units 05:35 WBC 2.78 L (4.8-10.8) K/ul Hgb 13.3 L (14.0-18.0) g/dl Hct 38.0 L (42.0-52.0) % Plt Count 72 L (130-400) K/uL BMP 08/15/22 05:35 Sodium 137 Potassium 4.2 Chloride 108 H Carbon Dioxide 26 BUN 18 Creatinine 0.92 Glucose 113 H Calcium 7.6 L Liver Function 08/15/22 Range/Units 05:35 Total Bilirubin 0.7 (0.2-1.0) mg/dl AST 34 (13-39) U/L ALT 35 (7-52) U/L Alkaline Phosphatase 57 (34-104) U/L Albumin 3.3 L (3.4-5.0) gm/dl Medications Administered Current Inpatient Medications Acetaminophen (Acetaminophen 325 Mg Tab) 650 mg PO Q4H PRN PRN Reason: Pain or Fever Stop: 09/12/22 23:47 Last Admin: 08/14/22 02:51 Dose: 650 mg Aspirin (Aspirin 81 Mg Ectab) 81 mg PO DAILY [facility] Stop: 09/13/22 08:59 Last Admin: 08/15/22 09:14 Dose: 81 mg Atorvastatin Calcium (Atorvastatin 40 Mg Tab) 80 mg PO [facility] Stop: 09/13/22 08:59 Last Admin: 08/15/22 09:14 Dose: 80 mg Clopidogrel Bisulfate (Clopidogrel Bisulfate 75 Mg Tab) 75 mg PO [facility] Stop: 09/13/22 08:59 Last Admin: 08/15/22 09:15 Dose: 75 mg Doxycycline Hyclate 100 mg/ (Dextrose) 110 mls @ 50 mls/hr IV Q12H [facility] Stop: 08/28/22 08:59 Last Admin: 08/15/22 09:16 Dose: 50 mls/hr Isosorbide Mononitrate (Isosorbide [place] Extended Rel 30 Mg Tabcr) 30 mg PO [facility] Stop: 09/13/22 08:59 Last Admin: 08/15/22 09:15 Dose: 30 mg Levothyroxine Sodium (Levothyroxine Sodium 88 Mcg Tablet) [facility] Stop: 09/13/22 06:29 Last Admin: 08/15/22 05:48 Dose: 88 mcg Nitroglycerin (Nitroglycerin Sl 0.4 Mg/Tab Tab) 0.4 mg SL Q5M PRN PRN Reason: Chest Pain Stop: 09/12/22 23:47
--- NOTE | 2022-08-15 15:17 | Discharge Summary ---
Date of Service August 15, 2022 Admission HPI Per Admitting Provider 67-year-old male with past medical history significant for CAD s/p stent to LAD and also known stent to jailed D2 from ostium to mid segment also has 60% with RCA lesion managed medically, history of hypothyroidism, dyslipidemia, osteoarthritis, presents with weakness and imbalance going over for the last 2 weeks. Last 2 days imbalance got worse, patient thinks if he bends down he will fall down. Denies any room spinning, no nausea. Has some dizziness when he bends down. Last 2 days he is having on and off chest discomfort 5 /10 in severity, currently has mild chest discomfort. Denies shortness of breath. T pearl was feeling very cold and weak. No appetite today. No headaches, no blurred visions, no runny nose, no sore throat, no dysphagia. No abdominal pain, normal bowel and bladder movements. Patient states he had a tick bite couple weeks ago near left axilla region. Patient states he lives and works and had many tick bites in the past but was not treated for Lyme disease. Currently resting comfortably and hemodynamically stable. Admission Exam Per Admitting Provider General- adult Head- atraumatic Eyes- PERRL, EOMI, anicteric ENT- oropharynx clear Neck- supple, no JVD, no adenopathy, Lungs- clear to auscultation and percussion Heart- regular rhythm; no murmur, no gallop, no rub appreciated Abdomen- normal bowel sounds, soft, nontender, no masses or hepatosplenomegaly Extremities- no pretibial edema, no erythema Neuro- alert, oriented x 3; PERRL, EOMI; no facial palsy; no dysarthria; motor 5/5 bilaterally finger to nose intact bilaterally, coordination of movements normal, no pronator drift. 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, weakness-improved, chest pain-no ACS Discharge Exam Lying in bed comfortably Constitutional + ill appearing and average body habitus Eyes PERRL, conjunctivae normal, anicteric sclerae ENMT external ear and nose normal, oropharynx normal Neck trachea midline, no thyromegaly Respiratory no respiratory distress Auscultation: lungs clear to auscultation bilaterally Cardiovascular Rate/Rhythm: regular rate and regular rhythm; not tachycardic Heart Sounds: normal S1 and normal S2; no murmur Extremities: no edema Gastrointestinal (Abdomen) Inspection/Auscultation: normal bowel sounds; abdomen not distended Percussion/Palpation: abdomen soft; abdomen nontender Musculoskeletal no cyanosis or clubbing, extremities motor strength 5/5 Neurologic normal touch/pain/proprioception and moves all extremities; no focal motor deficits Psychiatric A+Ox3, euthymic affect Lymphatic no cervical or axillary lymphadenopathy Discharge Data Allergies Allergy/AdvReac Type Severity Reaction Status Date / Time No Known Allergies Allergy Unverified 08/13/22 21:30 Consultations 08/13/22 21:14 ED Decision to Admit Stat 08/14/22 08:00 Consult Cardiology Routine Ordered Studies 08/13/22 18:25 CT angio chest PE protocol Stat CT angio head w con Stat CT angio neck with con Stat CT head/brain wo con Stat Hospital Course (1) Weakness: 67-year-old male with past medical significant for CAD s/p stent, hyperlipidemia, hypothyroidism comes because of weakness and imbalance no chest discomfort. Weakness Imbalance Stroke work-up with CTA head and neck and CT head unremarkable Had tick bite 3 weeks ago-did not report to his PCP and did not have any test before Leukopenia and thrombocytopenia present Initial anaplasmosis smear has been negative and will order for babesiosis tests as well-final PCR testing is pending Started on doxycycline and will monitor response Remains independent and has been ambulating in the hallway without any symptoms Weakness is improved and he wants to be discharged Pancytopenia Low white count and low platelet with minimal decrease in hemoglobin No signs of hemolysis and bilirubin remains normal Could be secondary to tick bite infection We will monitor CBC while in the hospital Pancytopenia is slightly better specially the platelet is minimally improved and not any worse Likely secondary to tickborne disease and is still waiting for anaplasmosis and babesiosis PCR testing He will be discharged home this afternoon on doxycycline and will have appointment with PCP within 7 days Chest discomfort Initial troponin and EKG unremarkable Having symptoms on and off for last 2 days History of CAD s/p stent to LAD and also jailed D2 from ostium to mid segment History of multivessel coronary disease on medical management We will follow serial cardiac enzymes and echocardiogram-serial cardiac enzymes have been unremarkable and echo remains unremarkable to Continue home medications Consult cardiology in a.m.-appreciate input and recommendation No arrhythmias and no more chest pain and remains stable cardiac pereira Cardiology cleared him Hyperlipidemia On statin DVT prophylaxis SCDs, as patient has thrombocytopenia Disposition Observe in telemetry floor CODE STATUS Full code. 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, weakness-improved, chest pain-no ACS Condition on Discharge: Good Activity: Resume your previous activity Non-emergency contact: Primary Care Provider Call non-emergency contact if: you have any medication questions and your symptoms worsen Follow-up/Referrals: Ngoc Hairston, DO [Primary Care Provider] - (Your doctor's office will give you a call with an appointment within 7 days) Diet: Heart Healthy Addtl Attending Provider Instructions: Please take precautions to avoid falls Take your medications as advised Try to drink more fluid Please give appointment with your healthcare provider-he will need to have a repeat CBC during the PCP visit Pending Studies at Discharge: Yes Studies:: Anaplasmosis and babesiosis PCR Stand-Alone Forms: My [employer], Smoking Cessation Medications and DC Order Prescriptions: New doxycycline hyclate 100 mg capsule 100 mg PO BID 8 Days Qty: 16 0RF Continued levothyroxine 88 mcg Tablet 88 mcg PO DAILY aspirin 81 mg Capsule 81 mg PO DAILY clopidogrel 75 mg Tablet 75 mg PO QAM Qty: 30 6RF nitroglycerin [Nitrostat] 0.4 mg Tablet, Sublingual 0.4 mg sublingual PRN PRN (Reason: chest pain) Qty: 1 4RF atorvastatin 80 mg tablet 80 mg PO QAM isosorbide mononitrate 30 mg Tablet Extended Release 24 Hr 30 mg PO QAM Qty: 30 0RF Discharge Orders: Discharge Order (Routine); Ordered 08/15/22 Ordered By: Sander Gresham/Other Patient Handouts: Anaplasmosis, Preventing Lyme Disease, Tick Bites Admission Data Admit Date/Time: 08/13/22 22:24 Attending Provider: Sander Salmeron Admit Provider: Donal Amanda Primary Care Provider: Ngoc Hairston Other Providers: Donal Amanda ; King Stratton Other Interventions: Discharge Summary Assessment (RN) Last Done: 08/15/22 11:58
== END 2022-08-15 12:38 | disposition home or self-care (01) ==
LOC: 2S 17:49 → ED 17:49 → 2S 23:33